=== PATIENT | female | born 1965 | race Caucasian/White ===

== ENCOUNTER 2017-03-21 18:07 | Observation (INO) | payer BC ==
[~2017-03-21] VITALS: Ht 165.1 cm; Wt 56.9 kg
[2017-03-21] VITALS (7 sets, daily range): BP systolic 141–167; BP diastolic 82–107; PULSE 83–106; RESP 18–20; TEMP 98.8; O2SAT 96–99
[~2017-03-21 18:07] MED LIST: ANAS1 PO; CLIN1CAP6 PO; LISI2.5T3 PO
[2017-03-21] MEDS ORDERED: PALB75CA PO (18:46)
[2017-03-21] MEDS ORDERED: LISI2.5T3 PO (18:46)
--- NOTE | 2017-03-21 18:50 | PD ---
HPI Chief Complaint: Dizziness Time Seen by Provider: 18:28 Travel History International Travel<30 days: No Contact w/Intl Traveler<30days: No Traveled to known affect area: No History of Present Illness HPI 51-year-old female complains of right ear ringing, headache, dizziness, slurring speech and walking leaning on to the left. Patient states that she started having right ear pain and ringing in right ear for the past 5 days. Patient states that she has headache 5 days ago but not since then. Patient states that she has persistent dizziness for the past 5 days. Patient states that she started having slurred speech since yesterday. Patient has history alcohol abuse and drinks alcohol daily. Patient states that her last drink was yesterday. Patient denies any history of DT in the past. Patient has history of breast cancer was on chemotherapy in the past. Recently patient was diagnosed with metastasis to the sternum and was put on chemotherapy. Patient denies any history of TIA or CVA. Patient has history of depression and hypertension. Patient states that she stopped taking medication for depression a month ago and stopped taking hypertension medication 3 days ago. Patient's sister states that patient started having slurred speech since yesterday. Patient's sister states that the slurred speech has not get any worse since yesterday. Patient's oncologist is Dr. Inman. [facility] Past Medical History Anxiety: Yes Cancer: Yes (BILATERAL BREAST METS TO SPINE AND CHEST WALL) Cardiovascular Problems: Yes (htn takes meds but states didnt take meds today) Chemotherapy: Yes Hypertension: Yes Radiation Therapy: Yes Menopausal: Yes Past Surgical History Mastectomy: Yes (BILATERAL FOR CA in 2003 , 2005 right breast tissue area) Other Surgery: Yes (BREAST AUMENTATION ) Social History Alcohol Use: Yes (SOCIAL- wine) Tobacco Use: No (quit years ago social smoker) Substance Use: No Allergies-Medications (Allergen,Severity, Reaction): Coded Allergies: Erythromycins (Verified Allergy, Severe, UNKNOWN, 03/21/17) Morphine (Verified Allergy, Severe, UNKNOWN, 03/21/17) Penicillin (Verified Allergy, Severe, UNKNOWN, 03/21/17) Uncoded Allergies: MRI CONTRAST (Allergy, Severe, Anaphylaxis, 06/17/16) . Reported Meds & Prescriptions Reported Meds & Active Scripts Active Reported Ibrance (Palbociclib) 75 Mg Capsule 1 Tab PO DAILY Lisinopril 2.5 Mg Tab 2.5 Mg PO DAILY Review of Systems General / Constitutional: No: Fever Eyes: No: Visual changes HENT: Positive: Headaches, Lightheadedness, Earache Cardiovascular: No: Chest Pain or Discomfort Respiratory: No: Shortness of Breath Gastrointestinal: No: Abdominal Pain Genitourinary: No: Dysuria Musculoskeletal: No: Pain Skin: No Rash Neurologic: Positive: Slurred Speech, No: Weakness Psychiatric: No: Depression Endocrine: No: Polydipsia Hematologic/Lymphatic: No: Easy Bruising Physical Exam Narrative GENERAL: Well-nourished, well-developed patient. SKIN: Focused skin assessment warm/dry. HEAD: Normocephalic. EYES: No scleral icterus. No injection or drainage. Pupils 2 mm equal reactive. NECK: Supple, trachea midline. No JVD or lymphadenopathy. CARDIOVASCULAR: Regular rate and rhythm without murmurs, gallops, or rubs. RESPIRATORY: Breath sounds equal bilaterally. No accessory muscle use. GASTROINTESTINAL: Abdomen soft, non-tender, nondistended. MUSCULOSKELETAL: No cyanosis, or edema. BACK: Nontender without obvious deformity. No CVA tenderness. Neurologic exam: Patient's awake and alert oriented 3. Extremity strength 5 / 5 bilaterally upper and lower extremity. Patient has trouble with finger-to- nose test. Data Data Last Documented VS Vital Signs Date Time Temp Pulse Resp B/P Pulse Ox O2 Delivery O2 Flow Rate FiO2 03/21/17 19:52 83 20 96 03/21/17 19:51 154/87 03/21/17 18:44 Room Air 03/21/17 18:18 98.8 Orders Electrocardiogram (03/21/17 18:40) Complete Blood Count With Diff (03/21/17 18:40) Comprehensive Metabolic Panel (03/21/17 18:40) Prothrombin Time / Inr (Pt) (03/21/17 18:40) Act Partial Throm Time (Ptt) (03/21/17 18:40) Urinalysis - C+S If Indicated (03/21/17 18:40) Chest, Single Ap (03/21/17 18:40) Ct Brain W/O Iv Contrast(Rout) (03/21/17 18:40) Iv Access Insert/Monitor (03/21/17 18:40) Ecg Monitoring (03/21/17 18:40) Oximetry (03/21/17 18:40) Alcohol (Ethanol) (03/21/17 18:40) Sodium Chlor 0.9% 1000 Ml Inj (Ns 1000 M (03/21/17 19:00) Urine Culture (03/21/17 18:50) Sodium Chlor 0.9% 1000 Ml Inj (Ns 1000 M (03/21/17 20:45) Thiamine Inj (Thiamine Inj) (03/21/17 20:45) Pantoprazole Inj (Protonix Inj) (03/21/17 20:45) Labs Laboratory Tests Test 03/21/17 03/21/17 18:50 19:30 Urine Color YELLOW Urine Turbidity HAZY Urine pH 5.5 Urine Specific [place] 1.010 Urine Protein NEG mg/dL Urine Glucose (UA) NEG mg/dL Urine Ketones NEG mg/dL Urine Occult Blood NEG Urine Nitrite NEG Urine Bilirubin NEG Urine Leukocyte Esterase MOD Urine WBC 15-19 /hpf Urine Squamous Epithelial 0-5 /hpf Cells Microscopic Urinalysis Comment CULTURE INDICATED White Blood Count 3.3 TH/MM3 Red Blood Count 3.66 MIL/MM3 Hemoglobin 12.7 GM/DL Hematocrit 38.0 % Mean Corpuscular Volume 103.6 FL Mean Corpuscular Hemoglobin 34.8 PG Mean Corpuscular Hemoglobin 33.5 % Concent Red Cell Distribution Width 13.6 % Platelet Count 133 TH/MM3 Mean Platelet Volume 7.1 FL Neutrophils (%) (Auto) 34.1 % Lymphocytes (%) (Auto) 50.2 % Monocytes (%) (Auto) 13.6 % Eosinophils (%) (Auto) 1.1 % Basophils (%) (Auto) 1.0 % Neutrophils # (Auto) 1.1 TH/MM3 Lymphocytes # (Auto) 1.8 TH/MM3 Monocytes # (Auto) 0.4 TH/MM3 Eosinophils # (Auto) 0.0 TH/MM3 Basophils # (Auto) 0.0 TH/MM3 CBC Comment DIFF FINAL Differential Comment Prothrombin Time 10.7 SEC Prothromb Time International 1.0 RATIO Ratio Activated Partial 25.4 SEC Thromboplast Time Sodium Level 143 MEQ/L Potassium Level 3.9 MEQ/L Chloride Level 108 MEQ/L Carbon Dioxide Level 24.6 MEQ/L Anion Gap 10 MEQ/L Blood Urea Nitrogen 12 MG/DL Creatinine 0.61 MG/DL Estimat Glomerular Filtration 103 ML/MIN Rate Random Glucose 94 MG/DL Calcium Level 8.6 MG/DL Total Bilirubin 0.2 MG/DL Aspartate Amino Transf 33 U/L (AST/SGOT) Alanine Aminotransferase 32 U/L (ALT/SGPT) Alkaline Phosphatase 58 U/L Total Protein 7.5 GM/DL Albumin 3.9 GM/DL Ethyl Alcohol Level 282 MG/DL MDM Medical Decision Making Medical Screen Exam Complete: Yes Emergency Medical Condition: Yes Interpretation(s) 1913 p.m. UA is negative. 2025 PM. Last Impressions Head CT 03/21/171839 Signed Impressions: Service Date/Time: February 19:02 - CONCLUSION: No acute abnormality. Omid Banks MD Chest X-Ray 03/21/171839 Signed Impressions: Service Date/Time: February 18:56 - CONCLUSION: No evidence of acute cardiopulmonary disease. Omid Banks MD 2025 PM. CBC WBC 3.3. Hemoglobin 12.7 hematocrit 30.0. MCV 103.6. 50 lymphocyte 13 mono. CMP within normal limit. Alcohol 282. UA is positive for WBC. Differential Diagnosis Differential diagnosis including TIA, CVA, alcohol intoxication, electrolyte imbalance, dehydration, metastatic disease. Narrative Course [id number] female with right ear pain, ringing in right ear, headache, dizziness, slurring speech and walking with limping to the left side. History of EtOH abuse. History of breast cancer with metastases to the sternum and on chemotherapy. Normal saline solution 100 cc an hour. Protonix 40 mg IV. Thiamine 100 mg IV. Aspirin 325 mg by mouth given. Diagnosis Primary Impression: Slurred speech Additional Impression: Alcohol intoxication Qualified Code: F10.920 - Alcohol intoxication, uncomplicated Admitting Information Admitting Physician Requests: Observation Loco Angeles MD March 21, 2017 18:49
[2017-03-21 19:05] LABS: BLOOD, URINE NEG (NEG); GLUCOSE,URINE NEG (NEG); KETONE, URINE NEG (NEG); NITRITE,URINE NEG (NEG); PH, URINE 5.5 (5.0-8.5)
[2017-03-21 19:09] LABS: URINE COLOR YELLOW (YELLW/STRAW)
[2017-03-21 19:10] LABS: COMMENT (UR) CULTURE INDICATED; CULTURE IF INDICATED CULTURE INDICATED; SQUAMOUS EPITHELIAL CELL URINE 0-5 /hpf (0-5); WBC, URINE 15-19 /hpf (0-5)
[2017-03-21] MEDS: SODIUM CHLOR 0.9% 1000 ML INJ 1,000 ML IV SCH ×2 (19:35→21:14)
[2017-03-21 19:38] LABS: AUTOMATED NEUTROPHIL # 1.1 TH/MM3 (1.8-7.7); EOSINOPHIL % 1.1 % (0.0-4.0); HEMO FLAGS DIFF FINAL; LYMPH % 50.2 % (9.0-44.0); LYMPHOCYTE # 1.8 TH/MM3 (1.0-4.8); MEAN CELL VOLUME 103.6 FL (80.0-100.0); MEAN CORPUSCULAR HEMOGLOBIN 34.8 PG (27.0-34.0); MEAN CORPUSCULAR HGB CONC 33.5 % (32.0-36.0); MONO % 13.6 % (0.0-8.0); NEUT % 34.1 % (16.0-70.0); PLATELET COUNT 133 TH/MM3 (150-450); RED BLOOD COUNT 3.66 MIL/MM3 (4.00-5.30); RED CELL DISTRIBUTION WIDTH 13.6 % (11.6-17.2); WHITE BLOOD COUNT 3.3 TH/MM3 (4.0-11.0)
--- NOTE | 2017-03-21 19:38 | RADHPO ---
EXAM DATE/TIME: 03/21/2017 19:02 [facility] COMPARISON: CT BRAIN W/O CONTRAST, July 14, 2014, 11:27. INDICATIONS : Right ear ringing. Dizziness. Cephalgia. Slurred speech. Abdnormal gait. Evaluate for cerebrovascular accident. RADIATION DOSE: 57.57 CTDIvol (mGy) MEDICAL HISTORY : Hypertension. Metastatic, breast. SURGICAL HISTORY : Mastectomy, bilateral. ENCOUNTER: Initial ACUITY: 3 days PAIN SCALE: 0/10 LOCATION: Bilateral cranial TECHNIQUE: Multiple contiguous axial images were obtained of the head. Using automated exposure control and adj ustment of the mA and/or kV according to patient size, radiation dose was kept as low as reasonably a chievable to obtain optimal diagnostic quality images. FINDINGS: CEREBRUM: The ventricles are normal for age. No evidence of midline shift, mass lesion, hemorrhage or acute in farction. No extra-axial fluid collections are seen. POSTERIOR FOSSA: The cerebellum and brainstem are intact. The 4th ventricle is midline. The cerebellopontine angle i s unremarkable. EXTRACRANIAL: The visualized portion of the orbits is intact. SKULL: The calvaria is intact. No evidence of skull fracture. CONCLUSION: No acute abnormality. Omid Banks MD on March 21, 2017 at 19:36 Board Certified Radiologist. This report was verified electronically.
[2017-03-21 19:46] LABS: CHLORIDE 108 MEQ/L (98-107); POTASSIUM 3.9 MEQ/L (3.5-5.1); SODIUM (NA) 143 MEQ/L (136-145)
[2017-03-21 19:50] LABS: ANION GAP 10 MEQ/L (5-15); BICARBONATE 24.6 MEQ/L (21.0-32.0); BLOOD UREA NITROGEN 12 MG/DL (7-18)
[2017-03-21 19:51] LABS: APTT (PATIENT) 25.4 SEC (24.3-30.1); PROTHROMBIN TIME - PATIENT 10.7 SEC (9.8-11.6)
[2017-03-21 19:53] LABS: ALT (GPT) 32 U/L (10-53); AST (GOT) 33 U/L (15-37); GLOMERULAR FILTRATION RATE 103 ML/MIN (>89)
[2017-03-21 19:54] LABS: TOTAL BILIRUBIN ADULT 0.2 MG/DL (0.2-1.0)
[2017-03-21 19:55] LABS: ALKALINE PHOSPHATASE 58 U/L (45-117)
--- NOTE | 2017-03-21 20:04 | RADHPO ---
EXAM DATE/TIME: 03/21/2017 18:56 [facility] COMPARISON: No previous studies available for comparison. INDICATIONS : Patient states she been confused and dizzy for one week. MEDICAL HISTORY : Hypertension. Metastatic, breast. SURGICAL HISTORY : Mastectomy, bilateral. ENCOUNTER: Initial ACUITY: 1 week PAIN SCORE: 0/10 LOCATION: Bilateral chest FINDINGS: A single view of the chest demonstrates the lungs to be symmetrically aerated without evidence of mas s, infiltrate or effusion. The cardiomediastinal contours are unremarkable. Osseous structures are intact. CONCLUSION: No evidence of acute cardiopulmonary disease. Omid Banks MD on March 21, 2017 at 20:02 Board Certified Radiologist. This report was verified electronically.
[2017-03-21] MEDS ORDERED: ASPIRIN 325 MG TAB PO ONE (20:45)
[2017-03-21] MEDS ORDERED: PANTOPRAZOLE SODIUM 40 MG VIAL IV PUSH ONE (20:45)
[2017-03-21] MEDS ORDERED: THIAMINE INJ 100 MG in SODIUM CHLORIDE 0.9% INJ 100 ML IV ONE (20:45)
[2017-03-21] MEDS ORDERED: SODIUM CHLORIDE 0.9% FLUSH 5 ML FLUSH IV FLUSH PRN (21:00)
[2017-03-21] MEDS: SODIUM CHLORIDE 0.9% FLUSH 5 ML FLUSH IV FLUSH SCH (21:00)
[2017-03-21] MEDS ORDERED: ACETAMINOPHEN 325 MG TAB PO ONE (22:30)
[2017-03-22] VITALS (7 sets, daily range): BP systolic 128–160; BP diastolic 79–96; PULSE 85–98; RESP 20; TEMP 96–98.8; O2SAT 97–99
[2017-03-22] MEDS: SODIUM CHLOR 0.9% 1000 ML INJ 1,000 ML IV SCH ×2 (05:00→06:03)
[2017-03-22] MEDS: SODIUM CHLORIDE 0.9% FLUSH 5 ML FLUSH IV FLUSH SCH (09:00)
[2017-03-22] MEDS ORDERED: LORazepam 1 MG TAB PO PRN ×2 (09:00→09:15)
[2017-03-22] MEDS ORDERED: FLUMAZENIL 0.5 MG/5 ML VIAL IV PUSH PRN (09:15)
[2017-03-22] MEDS ORDERED: LORazepam 2 MG/ML VIAL IV PUSH PRN ×2 (09:15)
[2017-03-22] MEDS ORDERED: LORazepam 2 MG TAB PO PRN (09:15)
[2017-03-22] MEDS ORDERED: MULTIVITAMINS/MINERALS THERAPEUTIC TAB PO SCH (09:15)
[2017-03-22] MEDS ORDERED: THIAMINE HCL 100 MG TAB PO SCH (09:15)
[2017-03-22] MEDS ORDERED: ENALAPRILAT 1.25 MG/ML VIAL IV PUSH PRN (09:15)
[2017-03-22] MEDS ORDERED: FOLIC ACID 1 MG TAB PO SCH (09:15)
[2017-03-22] MEDS ORDERED: LORazepam 1 MG TAB PO ONE (09:15)
--- NOTE | 2017-03-22 09:23 | HHI.HP ---
HPI Service [facility] Primary Care Physician Ting Logan MD Admission Diagnosis slurred speech. Alcohol intoxication. Diagnoses: Chief Complaint: Intoxication Travel History International Travel<30 Days: No Contact w/Intl Traveler <30 Da: No Traveled to Known Affected Are: No History of Present Illness The patient is a 51-year-old female with a past medical history of breast cancer and alcohol abuse who is presenting to the hospital with dizziness, slurred speech and headaches. The patient says that she has been drinking heavily over the past few days. She says she does have a history of alcohol abuse but has been able to stop drinking weeks at a time. She says that she has been taking chemotherapy meds for her breast cancer and has been told not to drink while on that medication. She has been trying hard to avoid it but every once in a while she slips up. She says she has a lot of anxiety in general. She says last fall she was diagnosed with metastasis to her sternum. She says that is the sixth time she has had problems secondary to her breast cancer. She says she has had a right ear infection a few months ago and since then she has always been having difficulty walking without leaning to one side or the other. She also endorses palpitations from time to time. Over the past few days she has had a headache. She said at work the other day she had a migraine which is only the second time she has experienced a migraine in her life. She says her headache has resolved at this time. She has experienced some nausea and vomiting from her chemotherapy medications, not recently. She denies any difficulties with urination or bowel movements. She shows great interest in wanting to quit alcohol. Review of Systems Except as stated in HPI: all other systems reviewed are Neg Past Family Social History Past Medical History Breast cancer bilaterally s/p chemoradiation with mets to the spine and sternum Infected breast implant TIA Panic attacks Anxiety/ Depression HTN Alcohol abuse Allergies: Coded Allergies: Erythromycins (Verified Allergy, Severe, UNKNOWN, 03/21/17) Morphine (Verified Allergy, Severe, UNKNOWN, 03/21/17) Penicillin (Verified Allergy, Severe, UNKNOWN, 03/21/17) Uncoded Allergies: MRI CONTRAST (Allergy, Severe, Anaphylaxis, 06/17/16) . Active Ordered Medications Current Medications Medications (Trade) Dose Ordered Sig/Velia Route Start Time Stop Time Status Last Admin Sodium Chloride 1,000 ml @ 100 mls/hr Q10H IV 03/21/17 19:00 03/21/17 19:35 (NS 1000 ml Inj) 1,000 ml @ 100 mls/hr Q10H IV 03/21/17 20:45 03/22/17 06:03 (NS Flush) 2 ml BID IV FLUSH 03/21/17 21:00 (NS Flush) 2 ml UNSCH PRN IV FLUSH 03/21/17 21:00 Non-Formulary Medication 2.5 mg DAILY PO 03/22/17 09:00 UNV Non-Formulary Medication 1 tab DAILY PO 03/22/17 09:00 UNV (Ativan) 1 mg Q8H PRN PO 03/22/17 09:00 UNV (Ativan) 1 mg ONCE ONCE PO 03/22/17 09:15 03/22/17 09:16 UNV (Vasotec Inj) 1.25 mg Q6H PRN IV PUSH 03/22/17 09:15 UNV Family History Breast cancer Thyroid cancer Social History The patient does not smoke or use illicit substances. She binges on wine every few weeks. Physical Exam Vital Signs Vital Signs Date Time Temp Pulse Resp B/P Pulse Ox O2 Delivery O2 Flow Rate FiO2 03/22/17 02:38 90 03/22/17 02:30 96.0 85 20 141/85 99 03/22/17 02:00 84 20 128/79 98 03/22/17 00:39 86 20 137/85 98 03/21/17 23:47 83 20 144/83 99 03/21/17 22:39 92 20 141/82 97 03/21/17 21:39 96 20 161/97 96 03/21/17 20:38 94 20 149/90 96 03/21/17 19:52 83 20 96 03/21/17 19:51 83 20 154/87 96 03/21/17 18:44 93 18 167/82 98 Room Air 03/21/17 18:41 93 99 Room Air 03/21/17 18:18 98.8 106 18 165/107 99 Physical Exam GENERAL: This is a well-nourished, well-developed patient, in no apparent distress. SKIN: No rashes, ecchymoses or lesions. Cool and dry. HEAD: Atraumatic. Normocephalic. No temporal or scalp tenderness. EYES: Pupils equal round and reactive. Extraocular motions intact. No scleral icterus. No injection or drainage. ENT: Nose without bleeding, purulent drainage or septal hematoma. Throat without erythema, tonsillar hypertrophy or exudate. Uvula midline. Airway patent. NECK: Trachea midline. No JVD or lymphadenopathy. Supple, nontender, no meningeal signs. CARDIOVASCULAR: Regular rate and rhythm without murmurs, gallops, or rubs. RESPIRATORY: Clear to auscultation. Breath sounds equal bilaterally. No wheezes , rales, or rhonchi. GASTROINTESTINAL: Abdomen soft, non-tender, nondistended. No hepato-splenomegaly , or palpable masses. No guarding. MUSCULOSKELETAL: Extremities without clubbing, cyanosis, or edema. No joint tenderness, effusion, or edema noted. NEUROLOGICAL: Awake and alert. Cranial nerves II through XII intact. Motor and sensory grossly within normal limits. Five out of 5 muscle strength in all muscle groups. Normal speech. PSYCH: Slightly anxious. Laboratory Laboratory Tests Test 03/21/17 03/21/17 18:50 19:30 Urine Color YELLOW Urine Turbidity HAZY Urine pH 5.5 Urine Specific [place] 1.010 Urine Protein NEG Urine Glucose (UA) NEG Urine Ketones NEG Urine Occult Blood NEG Urine Nitrite NEG Urine Bilirubin NEG Urine Leukocyte Esterase MOD Urine WBC 15-19 Urine Squamous Epithelial 0-5 Cells Microscopic Urinalysis Comment CULTURE INDICATED White Blood Count 3.3 Red Blood Count 3.66 Hemoglobin 12.7 Hematocrit 38.0 Mean Corpuscular Volume 103.6 Mean Corpuscular Hemoglobin 34.8 Mean Corpuscular Hemoglobin 33.5 Concent Red Cell Distribution Width 13.6 Platelet Count 133 Mean Platelet Volume 7.1 Neutrophils (%) (Auto) 34.1 Lymphocytes (%) (Auto) 50.2 Monocytes (%) (Auto) 13.6 Eosinophils (%) (Auto) 1.1 Basophils (%) (Auto) 1.0 Neutrophils # (Auto) 1.1 Lymphocytes # (Auto) 1.8 Monocytes # (Auto) 0.4 Eosinophils # (Auto) 0.0 Basophils # (Auto) 0.0 CBC Comment DIFF FINAL Differential Comment Prothrombin Time 10.7 Prothromb Time International 1.0 Ratio Activated Partial 25.4 Thromboplast Time Sodium Level 143 Potassium Level 3.9 Chloride Level 108 Carbon Dioxide Level 24.6 Anion Gap 10 Blood Urea Nitrogen 12 Creatinine 0.61 Estimat Glomerular Filtration 103 Rate Random Glucose 94 Calcium Level 8.6 Total Bilirubin 0.2 Aspartate Amino Transf 33 (AST/SGOT) Alanine Aminotransferase 32 (ALT/SGPT) Alkaline Phosphatase 58 Total Protein 7.5 Albumin 3.9 Ethyl Alcohol Level 282 Date/Time Procedure Status Source Growth 03/21/17 18:50 Urine Culture Received Urine Clean Catch Pending Result Diagram: 03/21/17192903/21/171929 Imaging Last Impressions Head CT 03/21/171839 Signed Impressions: Service Date/Time: February 19:02 - CONCLUSION: No acute abnormality. Omid Banks MD Chest X-Ray 03/21/171839 Signed Impressions: Service Date/Time: February 18:56 - CONCLUSION: No evidence of acute cardiopulmonary disease. Omid Banks MD Assessment and Plan Assessment and Plan Alcohol intoxication The patient presents to the hospital with dizziness, slurred speech and difficulties with ambulation. She was found to be intoxicated with a blood alcohol level of 282. She denies any history of withdrawal seizures. She says she tends to binge on wine every few weeks. She endorses a number of stressors. She does show interest in wanting to quit. - Neuro checks, seizure precautions. - [facility] protocol. - Multivitamin, folate and thiamine. - Case management consult for alcohol cessation resources. - Appreciate physical therapy evaluation. Headache/ Ear ringing/ Ataxia The pt says she has had a headache over the past few days, including a migraine which is only the second time in her life experiencing one. She also endorses ringing in her right ear and listing to the side, which started after having a right ear infection a few months ago. CT head unremarkable. - MRI of the brain, echo and carotid US pending. Neutropenia/ Thrombocytopenia Likely s/t chemo meds. - continue chemo meds. - outpt follow-up. Anxiety/ Depression The pt recently discontinued her depression med cold turkey. She struggles with anxiety. - Ativan as needed. - outpt follow-up. HTN The pt takes lisinopril 2.5 mg daily. - increase lisinopril as needed. - Vasotec as needed. PPx: SCDs Code Status Full. Discussed Condition With Pt, physical therapist, nurse. Migue Rhodes DO March 22, 2017 09:23
[2017-03-22] MEDS ORDERED: LISINOPRIL 5 MG TAB PO SCH (09:30)
[2017-03-22] MEDS ORDERED: PILL SPLITTER OTHER PRN (09:30)
[2017-03-22] MEDS ORDERED: PALBOCICLIB PO SCH (09:45)
[2017-03-22 10:05] LABS: HDL CHOLESTEROL 63.6 MG/DL (40.0-60.0)
--- NOTE | 2017-03-22 10:41 | RADHPO ---
EXAM DATE/TIME: 03/22/2017 13:19 [facility] COMPARISON: No previous studies available for comparison. INDICATIONS : Transischemic attack. MEDICAL HISTORY : Carcinoma, breast. Hypertension. SURGICAL HISTORY : Breast augmentation. Breast surgery for cancer. ENCOUNTER: Initial ACUITY: 4-6 days PAIN SCORE: 0/10 LOCATION: Bilateral neck PEAK SYSTOLIC VELOCITIES (cm/sec): ICA/CCA RATIO: Right: 0.8 Left: 1.3 ICA: Right: 84 Left: 103 CCA: Right: 101 Left: 78 ECA: Right: 104 Left: 101 VERTEBRAL: Right: 38 antegrade Left: 70 antegrade Elevated flow velocities and ICA/CCA ratios have been found to correlate with increased degrees of vessel stenosis, calculated as percentage of diameter relative to a normal segment of distal ICA/CCA FINDINGS: RIGHT CAROTID: No significant stenosis is visualized. The waveforms are within normal limits. LEFT CAROTID: No significant stenosis is visualized. The waveforms are within normal limits. VERTEBRAL ARTERIES: Antegrade flow is seen in both vertebral arteries. MISCELLANEOUS: None. CONCLUSION: 1. Mild visible plaque formation without hemodynamically significant stenosis in the carotid arteries . Vertebral artery flow antegrade. Manny Faust MD on March 22, 2017 at 10:33 Board Certified Radiologist. This report was verified electronically.
--- NOTE | 2017-03-22 11:19 | EC ---
Study Study Date:03/22/2017 STUDY CONCLUSIONS SUMMARY - Procedure narrative: Transthoracic echocardiography. Image quality was fair. Scanning was performed from the parasternal, apical, and subcostal acoustic windows. - Left ventricle: The cavity size was normal. Wall thickness was normal. Systolic function was normal. The estimated ejection fraction was in the range of 55% to 60%. Although no diagnostic regional wall motion abnormality was identified, this possibility cannot be completely excluded on the basis of this study. - Mitral valve: Possible minimal prolapse and leaflet redundancy. Trace regurgitation. - Tricuspid valve: Trace regurgitation. If LV function is below 40, please consider prescribing an ACEI or ARB or document rationale for non-use. PROCEDURE DATA STUDY STATUS: Elective. Procedure: Transthoracic echocardiography. Image quality was fair. Scanning was performed from the parasternal, apical, and subcostal acoustic windows. Study completion: The patient tolerated the procedure well. Transthoracic echocardiography. M-mode, complete 2D, complete spectral Doppler, and color Doppler. Patient status: Inpatient. CARDIAC ANATOMY LEFT VENTRICLE: The cavity size was normal. Wall thickness was normal. Systolic function was normal. The estimated ejection fraction was in the range of 55% to 60%. Although no diagnostic regional wall motion abnormality was identified, this possibility cannot be completely excluded on the basis of this study. AORTIC VALVE: Trileaflet; normal thickness leaflets. Doppler: Transvalvular velocity was within the normal range. There was no stenosis. No regurgitation. Peak gradient: 17mm Hg (S). AORTA: Aortic root: The aortic root was normal in size. MITRAL VALVE: Possible minimal prolapse and leaflet redundancy. Doppler: Transvalvular velocity was within the normal range. There was no evidence for stenosis. Trace regurgitation. Peak gradient: 4mm Hg (D). LEFT ATRIUM: The atrium was normal in size. RIGHT VENTRICLE: The cavity size was normal. Wall thickness was normal. PULMONIC VALVE: Doppler: Transvalvular velocity was within the normal range. There was no evidence for stenosis. No regurgitation. TRICUSPID VALVE: Structurally normal valve. Doppler: Transvalvular velocity was within the normal range. Trace regurgitation. PULMONARY ARTERY: The main pulmonary artery was normal-sized. Systolic pressure was within the normal range. RIGHT ATRIUM: The atrium was normal in size. PERICARDIUM: There was no pericardial effusion. SYSTEMIC VEINS: Inferior vena cava: The vessel was normal in size. BASIC MEASUREMENTS ADULT Normal Left ventricle LV internal dimension, ED, chordal level, *38.9 mm 43-52 PLAX LV internal dimension, ES, chordal level, 29.8 mm 23-38 PLAX Fractional shortening, chordal level, PLAX *23 % >29 LV posterior wall thickness, ED 5.92 mm IVS/LVPW ratio, ED *1.55 <1.3 Ventricular septum Septal thickness, ED 9.18 mm Aortic valve Leaflet separation 20 mm 15-26 Left atrium Anterior-posterior dimension 30 mm Right ventricle RV internal dimension, ED, PLAX 20.3 mm 19-38 BASIC MEASUREMENTS ADULT Normal Aortic valve Leaflet separation 20 mm 15-26 Aorta Root diameter, ED 30 mm 20-37 DOPPLER MEASUREMENTS ADULT Normal Aortic valve Peak velocity, S 204 cm/s Peak gradient, S 17 mm Hg Mitral valve Peak E-wave velocity 95.8 cm/s Peak A-wave velocity 67.6 cm/s Peak gradient, D 4 mm Hg Peak E/A ratio 1.4 Tricuspid valve Regurgitant peak velocity 206 cm/s Peak RV-RA gradient, S 17 mm Hg Maximal regurgitant velocity 206 cm/s LEGEND: Mean values are shown as u=mean value. Asterisk (*) love values outside specified normal range. Prepared and signed by Chucky Allison [id number]
[2017-03-22 11:26] LABS: HEMOGLOBIN A1a 1.6 %; HEMOGLOBIN A1b 0.7 %; HEMOGLOBIN Ao 83.4 %; HEMOGLOBIN F 2.8 %; HEMOGLOBIN LA1C 1.8 %; HEMOGLOBIN P3 3.3 %
--- NOTE | 2017-03-22 14:23 | EKG ---
Date Performed: 03/21/2017 Time Performed: 18:53:52 PTAGE: 51 years EKG: Sinus rhythm Compared to prior tracing no significant change Normal ECG PREVIOUS TRACING : 05/13/2014 16.49 DOCTOR: Vladimir Lyons Interpretating Date/Time 03/22/2017 14:20:51
--- NOTE | 2017-03-22 14:45 | RADHPO ---
EXAM DATE/TIME: 03/22/2017 14:05 [facility] COMPARISON: No previous studies available for comparison. INDICATIONS : CVA. MEDICAL HISTORY : Carcinoma, breast. Metastatic disease. SURGICAL HISTORY : Mastectomy, bilateral. ENCOUNTER: Subsequent ACUITY: 2 day PAIN SCORE: 3/10 LOCATION: cranial TECHNIQUE: Multiplanar, multisequence MRI of the brain was performed without contrast. FINDINGS: MRI of the brain is performed in sagittal, axial and coronal planes. The craniocervical junction and midline structures are unremarkable. Diffusion weighted images demonstrate no abnormality. There is n o evidence of acute cortical infarction, acute hemorrhage, mass effect or midline shift is seen. Ther e is periventricular hyperintensity on the T2 weighted images consistent with small vessel vascular d isease slightly more than expected in a patient of this age. Contrast was not administered and the pr esence or absence of metastatic disease cannot be determined Posterior fossa structures are unremarka ble. CONCLUSION: 1. No evidence of acute intracranial pathology. Chronic ischemic changes as above. Vladimir Fernández MD on March 22, 2017 at 14:40 Board Certified Radiologist. This report was verified electronically.
[2017-03-22] MEDS ORDERED: LISI-519 PO (17:13)
[2017-03-22] MEDS ORDERED: LORA-373 PO (17:13)
--- NOTE | 2017-03-22 17:14 | HHI.DCPOC ---
Discharge Care Plan Diagnosis: (1) Alcohol intoxication (2) Tachycardia Your Health Problems Are: Anxiety Goals to Promote Your Health * To prevent worsening of your condition and complications * To maintain your health at the optimal level Directions to Meet Your Goals Take your medications as prescribed Follow your dietary instruction Follow activity as directed Keep your appointments as scheduled Take your immunizations and boosters as scheduled If your symptoms worsen call your PCP, if no PCP go to Urgent Care Center or Emergency Room Smoking is Dangerous to Your Health. Avoid second hand smoke Call the 24-hour hour crisis hotline for domestic abuse at Migue Rhodes DO March 22, 2017 17:13
--- NOTE | 2017-03-23 16:01 | EKG ---
Date Performed: 03/22/2017 Time Performed: 16:54:06 PTAGE: 51 years EKG: Within normal limits Since PREVIOUS TRACING 03/21/2017, no significant change. PREVIOUS TRACIN03/21/2017 18.53 DOCTOR: Tunde Salgado Interpretating Date/Time 03/23/2017 16:00:18
--- NOTE | 2017-03-27 12:36 | HM ---
Date Performed: 03/22/2017 Time Performed: 17:17:00 HOOKUP DATE: 03/22/17 05:17:00 PM Fri ANALYSIS START TIME: 03/22/2017 5:22:00 PM ANALYSIS END TIME: 03/23/2017 5:26:00 PM PATIENT AGE: 51 PATIENT HEIGHT: 65 PATIENT WEIGHT: 125 DRUG LIST: room# [id number] / d/c home PATIENT DIAGNOSIS: slurred speech alcohol intoxication TEST NARRATIVE: The patient's average heart rate was 99 BPM. Heart rates greater than 120 B PM were noted 27% of the time. No episodes of bradycardia were noted. No pauses exceeding 2.0 se conds were noted. 12 ventricular ectopics, which represented < 1% of the total beat count, were n oted. The highest ventricular ectopic frequency occurred from 08:00 PM to 09:00 PM Fri. During this time 4 VE(s) occurred. Ventricular ectopics were observed as 12 isolated beat(s) only. No couplets or runs were noted. 13 supraventricular ectopics, which represented < 1% of the total beat count , were noted. The highest supraventricular ectopic frequency occurred from 11:00 PM to 12:00 AM Sat. During this time 4 SVE(s) occurred. No episodes of ST depression (defined as -1.0 mm or more) w ere noted in channel 1. No episodes of ST depression (defined as -1.0 mm or more) were noted in [place] [facility]. No episodes of ST depression (defined as -1.0 mm or more) were noted in channel 3. NO DIARY R ETURNED TEST INTERPRETATION: Sinus rhythm PROBABLE SVT AT 150 BPM (SAT 2:30PM); CLINICAL CORRELATION RECOMMENDED Signed by : Francisco Hall
== END 2017-03-22 18:22 | disposition home or self-care (01) ==
LOC: PHED 18:07 → PHEDA 20:57 → PH3A 03-22 01:59
PROVIDERS: ADMIT Hospitalist; ATTEND Hospitalist
DX: F10.120 Alcohol abuse with intoxication, uncomplicated (principal); Y90.8 Blood alcohol level of 240 mg/100 ml or more; D69.6 Thrombocytopenia, unspecified; D70.9 Neutropenia, unspecified; T45.1X5A Adverse effect of antineoplastic and immunosuppressive drugs, initial encounter; I10 Essential (primary) hypertension; R47.81 Slurred speech; R00.2 Palpitations; R27.0 Ataxia, unspecified; H93.11 Tinnitus, right ear; R11.2 Nausea with vomiting, unspecified; R82.99 Other abnormal findings in urine; F41.9 Anxiety disorder, unspecified; F32.9 Major depressive disorder, single episode, unspecified; C79.51 Secondary malignant neoplasm of bone; Z85.3 Personal history of malignant neoplasm of breast; Z92.21 Personal history of antineoplastic chemotherapy; Z86.73 Personal history of transient ischemic attack (TIA), and cerebral infarction without residual deficits
CPT/HCPCS: 70450; 70551; 71010; 80053; 80061; 80307; 81001; 82948; 83036; 85025; 85610; 85730; 87086; 93005; 93225; 93226; 93306; 93880; 96361; 96374; 96375; 97162; 99285; C9113; G0378; G8987; G8988; J3411; J7030

== ENCOUNTER 2017-04-25 16:35 | Emergency (ER) | payer BC ==
[~2017-04-25] VITALS: Ht 165.1 cm; Wt 54.0 kg
[~2017-04-25 16:35] MED LIST changes: -ANAS1 PO; -CLIN1CAP6 PO; +LISI-519 PO; -LISI2.5T3 PO; +LORA-373 PO; +PALB75CA PO
[2017-04-25 16:40] VITALS: BP 161/119; PULSE 115; RESP 22; TEMP 97.7; O2SAT 98
[2017-04-25] MEDS ORDERED: MAGN400T24 PO (16:57)
[2017-04-25] MEDS ORDERED: VENL75CA44 PO (16:57)
[2017-04-25] MEDS ORDERED: CALC1TAB12 PO (16:57)
[2017-04-25] MEDS ORDERED: VITA100T67 PO (16:57)
[2017-04-25] MEDS ORDERED: SODIUM CHLOR 0.9% 1000 ML INJ 1,000 ML IV SCH (16:59)
[2017-04-25] MEDS ORDERED: SODIUM CHLORIDE 0.9% FLUSH 10 ML FLUSH IV FLUSH PRN (17:00)
[2017-04-25] MEDS ORDERED: ONDANSETRON HCL 4 MG/2 ML VIAL IVP ONE (17:00)
[2017-04-25] MEDS ORDERED: LORazepam 2 MG/ML VIAL IV PUSH ONE (17:00)
--- NOTE | 2017-04-25 17:03 | PD ---
HPI Chief Complaint: GI Complaint Time Seen by Provider: 16:49 Travel History International Travel<30 days: No Contact w/Intl Traveler<30days: No Traveled to known affect area: No History of Present Illness HPI 51-year-old female with history of breast cancer status post bilateral mastectomy with recurrence on her spine that was treated with radiation therapy with recent recurrence to her sternum currently treated by daily oral chemotherapy by oncologist Dr. Inman, here for evaluation of nausea, vomiting, bilateral hand and leg cramps. Patient reports that her mother had nausea and vomiting yesterday. Patient is had several episodes of emesis throughout the day today which she states is bilious. She is having some mild abdominal cramping. No history of abdominal surgeries. No diarrhea. No fevers. She was recently seen here for alcohol intoxication and admits to drinking alcohol because she feels depressed, however she has not drank alcohol in several days. She denies suicidal ideation. PFSH Past Medical History Blood Disorders: No Anxiety: Yes Depression: Yes Heart Rhythm Problems: No Cancer: Yes (BILATERAL BREAST METS TO SPINE AND CHEST WALL) Cardiovascular Problems: Yes High Cholesterol: No Chemotherapy: Yes Chest Pain: No Congestive Heart Failure: No Diminished Hearing: No Endocrine: No Gastrointestinal Disorders: No Genitourinary: No Hypertension: Yes Immune Disorder: No Implanted Vascular Access Dvce: No Musculoskeletal: No Neurologic: Yes (NEURO SYMPTOMS WITH THIS ADMISSION) Psychiatric: Yes Reproductive: No Respiratory: No Radiation Therapy: Yes Tetanus Vaccination: Unknown ?: Not Menopausal: Yes Past Surgical History Mastectomy: Yes (BILATERAL FOR CA in 2003 , 2005 right breast tissue area) Other Surgery: Yes (BREAST AUMENTATION/MASTECTOMIES ) Social History Alcohol Use: Yes (SOCIAL- wine) Tobacco Use: No (quit years ago social smoker) Substance Use: No Allergies-Medications (Allergen,Severity, Reaction): Coded Allergies: Erythromycins (Verified Allergy, Severe, UNKNOWN, 04/25/17) Morphine (Verified Allergy, Severe, UNKNOWN, 04/25/17) Penicillin (Verified Allergy, Severe, UNKNOWN, 04/25/17) Uncoded Allergies: MRI CONTRAST (Allergy, Severe, Anaphylaxis, 06/17/16) . Reported Meds & Prescriptions Reported Meds & Active Scripts Active Lisinopril 5 Mg Tab 5 Mg PO DAILY Reported Vitamin E (Vitamin E Mixed) 100 Unit Tablet 1 Tab PO DAILY Magnesium (Magnesium Oxide) 400 Mg Tablet 1 Tab PO DAILY Calcium 500 +D (Calcium Carbonate-Cholecalciferol) 500-400 Mg-Unit Tab 1 Tab PO BID Venlafaxine ER 24 HR (Venlafaxine HCl) 75 Mg Cap 75 Mg PO DAILY Ibrance (Palbociclib) 75 Mg Capsule 1 Tab PO DAILY Review of Systems Except as stated in HPI: all other systems reviewed are Neg Physical Exam Narrative GENERAL: Well-developed, well-nourished, comfortable, no apparent distress. Positive Trousseau sign 1 blood pressure cuff inflated on left upper extremity. SKIN: Focused skin assessment warm/dry. HEAD: Atraumatic. Normocephalic. EYES: Pupils equal and round. No scleral icterus. No injection or drainage. ENT: Mucous membranes pink and dry. NECK: Trachea midline. No JVD. CARDIOVASCULAR: Regular rate and rhythm. RESPIRATORY: No accessory muscle use. Clear to auscultation. Breath sounds equal bilaterally. GASTROINTESTINAL: Abdomen soft, non-tender, nondistended. Normal bowel sounds. MUSCULOSKELETAL: No obvious deformities. No clubbing. No cyanosis. No edema. NEUROLOGICAL: Awake and alert. No obvious cranial nerve deficits. Motor grossly within normal limits. Normal speech. PSYCHIATRIC: Appropriate mood and affect; insight and judgment normal. Data Data Last Documented VS Vital Signs Date Time Temp Pulse Resp B/P Pulse Ox O2 Delivery O2 Flow Rate FiO2 04/25/17 17:25 97.3 82 18 140/108 98 Orders Complete Blood Count With Diff (04/25/17 16:59) Comprehensive Metabolic Panel (04/25/17 16:59) Lipase (04/25/17 16:59) Prothrombin Time / Inr (Pt) (04/25/17 16:59) Act Partial Throm Time (Ptt) (04/25/17 16:59) Iv Access Insert/Monitor (04/25/17 16:59) Ecg Monitoring (04/25/17 16:59) Oximetry (04/25/17 16:59) Ondansetron Inj (Zofran Inj) (04/25/17 17:00) Sodium Chlor 0.9% 1000 Ml Inj (Ns 1000 M (04/25/17 16:59) Sodium Chloride 0.9% Flush (Ns Flush) (04/25/17 17:00) Electrocardiogram (6/29/17 16:59) Lorazepam Inj (Ativan Inj) (04/25/17 17:00) Labs Laboratory Tests Test 04/25/17 17:07 White Blood Count 2.8 TH/MM3 Red Blood Count 4.03 MIL/MM3 Hemoglobin 14.1 GM/DL Hematocrit 42.6 % Mean Corpuscular Volume 105.6 FL Mean Corpuscular Hemoglobin 35.0 PG Mean Corpuscular Hemoglobin 33.2 % Concent Red Cell Distribution Width 16.0 % Platelet Count 143 TH/MM3 Mean Platelet Volume 7.1 FL Neutrophils (%) (Auto) 74.0 % Lymphocytes (%) (Auto) 15.8 % Monocytes (%) (Auto) 8.2 % Eosinophils (%) (Auto) 0.1 % Basophils (%) (Auto) 1.9 % Neutrophils # (Auto) 2.1 TH/MM3 Lymphocytes # (Auto) 0.4 TH/MM3 Monocytes # (Auto) 0.2 TH/MM3 Eosinophils # (Auto) 0.0 TH/MM3 Basophils # (Auto) 0.1 TH/MM3 CBC Comment DIFF FINAL Differential Comment Sodium Level 139 MEQ/L Potassium Level 3.4 MEQ/L Chloride Level 101 MEQ/L Carbon Dioxide Level 19.1 MEQ/L Anion Gap 19 MEQ/L Blood Urea Nitrogen 7 MG/DL Creatinine 0.84 MG/DL Estimat Glomerular Filtration 71 ML/MIN Rate Random Glucose 153 MG/DL Calcium Level 9.0 MG/DL Total Bilirubin 1.1 MG/DL Aspartate Amino Transf 70 U/L (AST/SGOT) Alanine Aminotransferase 35 U/L (ALT/SGPT) Alkaline Phosphatase 84 U/L Total Protein 8.3 GM/DL Albumin 4.3 GM/DL Lipase 133 U/L MDM Medical Decision Making Medical Screen Exam Complete: Yes Emergency Medical Condition: Yes Medical Record Reviewed: Yes Interpretation(s) EKG: Sinus, rate 80, normal axis, normal intervals, occasional ectopic premature complexes, no acute ischemic abnormality. Differential Diagnosis Dehydration, hypocalcemia, metabolic abnormality, anxiety, bowel obstruction unlikely Narrative Course Vital signs reviewed. Heart rate improved from 1:15 to 82 after the patient received Ativan and a liter of normal saline IV. CBC shows WBC 2.8, hemoglobin 14.1, hematocrit 42.6, platelets 105.6, neutrophils 74%. CMP is remarkable for potassium 3.4, bicarbonate 19.1 which is likely secondary to hyperventilating, otherwise essentially unremarkable. Lipase is 133. Patient was given a liter of normal saline IV, 1 milligram of IV Ativan, IV Zofran, and on reassessment is feeling improved. She is tolerating Gatorade here in the emergency department. She was made aware of all findings. She is stable for discharge home with outpatient follow-up with her primary care physician this week. Her abdominal exam is benign. She was informed on when to return to the emergency department. She verbalizes understanding and agreement with plan. Diagnosis Primary Impression: Nausea and vomiting Qualified Code: R11.2 - Non-intractable vomiting with nausea, unspecified vomiting type Referrals: Primary Care Physician 3 days Additional Instructions: Follow-up with your primary care physician this week. Stay hydrated with plenty of fluids. Return to the emergency department for worsening symptoms or any other concerns. Scripts Ondansetron Odt (Zofran Odt)4 Mg Tab4 Mg SL Q8HR PRN (Nausea/Vomiting) #20 TAB Ref 0 Prov:Brigido Wiely MD 04/25/17 Disposition: 01 DISCHARGE HOME Condition: Stable Brigido Wiley MD Apr 25, 2017 17:03
[2017-04-25 17:18] LABS: AUTOMATED NEUTROPHIL # 2.1 TH/MM3 (1.8-7.7); BASOPHIL # 0.1 TH/MM3 (0-0.2); BASOPHIL % 1.9 % (0.0-2.0); EOSINOPHIL % 0.1 % (0.0-4.0); HEMATOCRIT 42.6 % (35.0-46.0); HEMO FLAGS DIFF FINAL; LYMPH % 15.8 % (9.0-44.0); LYMPHOCYTE # 0.4 TH/MM3 (1.0-4.8); MEAN CELL VOLUME 105.6 FL (80.0-100.0); MEAN CORPUSCULAR HGB CONC 33.2 % (32.0-36.0); MONO % 8.2 % (0.0-8.0); PLATELET COUNT 143 TH/MM3 (150-450); RED BLOOD COUNT 4.03 MIL/MM3 (4.00-5.30); WHITE BLOOD COUNT 2.8 TH/MM3 (4.0-11.0)
[2017-04-25 17:24] VITALS: O2SAT 99
[2017-04-25 17:25] VITALS: BP 140/108; PULSE 82; RESP 18; TEMP 97.3; O2SAT 98
[2017-04-25 17:30] LABS: CHLORIDE 101 MEQ/L (98-107); POTASSIUM 3.4 MEQ/L (3.5-5.1); SODIUM (NA) 139 MEQ/L (136-145)
[2017-04-25 17:34] LABS: ANION GAP 19 MEQ/L (5-15); BICARBONATE 19.1 MEQ/L (21.0-32.0); BLOOD UREA NITROGEN 7 MG/DL (7-18)
[2017-04-25 17:37] LABS: ALT (GPT) 35 U/L (10-53); AST (GOT) 70 U/L (15-37); GLOMERULAR FILTRATION RATE 71 ML/MIN (>89)
[2017-04-25 17:38] LABS: TOTAL BILIRUBIN ADULT 1.1 MG/DL (0.2-1.0)
[2017-04-25 17:40] LABS: ALKALINE PHOSPHATASE 84 U/L (45-117)
[2017-04-25] MEDS ORDERED: ZOFR4TAB3 SL (17:56)
[2017-04-25 17:58] LABS: APTT (PATIENT) 22.8 SEC (24.3-30.1); PROTHROMBIN TIME - PATIENT 11.3 SEC (9.8-11.6)
--- NOTE | 2017-04-26 05:06 | EKG ---
Date Performed: 04/25/2017 Time Performed: 18:14:34 PTAGE: 51 years EKG: SINUS TACHYCARDIA WITH FREQUENT SUPRAVENTRICULAR PREMATURE COMPLEXES ABNORMAL RHYTHM ECG NO SIGNIFICANT CHANGE FROM PRIOR ELECTROCARDIOGRAM. PREVIOUS TRACING : 04/25/2017 17.27 DOCTOR: Radames Monet Interpretating Date/Time 04/26/2017 05:04:30
--- NOTE | 2017-04-26 05:07 | EKG ---
Date Performed: 04/25/2017 Time Performed: 17:27:06 PTAGE: 51 years EKG: Sinus rhythm WITH OCCASIONAL ECTOPIC PREMATURE COMPLEXES BORDERLINE ECG NO SIGNIFICANT CHANGE FROM PRIOR ELECTROC ARDIOGRAM. PREVIOUS TRACING : 03/22/2017 16.54 DOCTOR: Radames Monet Interpretating Date/Time 05/01/2017 06:48:21
== END 2017-04-25 18:38 | disposition home or self-care (01) ==
LOC: PHED 16:35
DX: R11.2 Nausea with vomiting, unspecified (principal); Z85.3 Personal history of malignant neoplasm of breast; Z90.13 Acquired absence of bilateral breasts and nipples; I10 Essential (primary) hypertension; Z88.0 Allergy status to penicillin
CPT/HCPCS: 80053; 83690; 85025; 85610; 85730; 93005; 96361; 96374; 96375; 99284; J2060; J2405; J7030

== ENCOUNTER 2017-06-01 09:17 | Emergency (ER) | payer BC ==
[~2017-06-01] VITALS: Ht 165.1 cm; Wt 53.0 kg
[~2017-06-01 09:17] MED LIST changes: +CALC1TAB12 PO; -LORA-373 PO; +MAGN400T24 PO; +VENL75CA44 PO; +VITA100T67 PO; +ZOFR4TAB3 SL
[2017-06-01 09:19] VITALS: BP 138/78; PULSE 85; RESP 16; TEMP 98.5; O2SAT 97
--- NOTE | 2017-06-01 09:47 | PD ---
HPI Chief Complaint: Injury Time Seen by Provider: 09:39 Travel History International Travel<30 days: No Contact w/Intl Traveler<30days: No Traveled to known affect area: No History of Present Illness HPI 51-year-old female complains of left fourth finger pain and right fifth toe pain. Patient injured the right fifth toe about month ago. Patient states that the right fifth toe probably was dislocated and she reduced it herself. Patient jammed the left fourth finger yesterday. Patient states that she had persistent sharp pain of left fourth finger. Patient denies any other injury. Patient states that the pain localized around the PIP joint of the left fourth finger. Patient denies any pain radiation. Patient states the pain is worse with movement. PFSH Past Medical History Blood Disorders: No Anxiety: Yes Depression: Yes Heart Rhythm Problems: No Cancer: Yes (BILATERAL BREAST METS TO SPINE AND CHEST WALL) Cardiovascular Problems: Yes High Cholesterol: No Chemotherapy: Yes Chest Pain: No Congestive Heart Failure: No Diminished Hearing: No Endocrine: No Gastrointestinal Disorders: No Genitourinary: No Hypertension: Yes Immune Disorder: No Implanted Vascular Access Dvce: No Musculoskeletal: No Neurologic: Yes (NEURO SYMPTOMS WITH THIS ADMISSION) Psychiatric: Yes Reproductive: No Respiratory: No Radiation Therapy: Yes Menopausal: Yes Past Surgical History Mastectomy: Yes (BILATERAL FOR CA in 2003 , 2005 right breast tissue area) Other Surgery: Yes (BREAST AUMENTATION/MASTECTOMIES ) Social History Alcohol Use: Yes (SOCIAL- wine) Tobacco Use: No (quit years ago social smoker) Substance Use: No Allergies-Medications (Allergen,Severity, Reaction): Coded Allergies: Erythromycins (Verified Allergy, Severe, UNKNOWN, 06/01/17) Morphine (Verified Allergy, Severe, UNKNOWN, 06/01/17) Penicillin (Verified Allergy, Severe, UNKNOWN, 06/01/17) Uncoded Allergies: MRI CONTRAST (Allergy, Severe, Anaphylaxis, 06/17/16) . Reported Meds & Prescriptions Reported Meds & Active Scripts Active Zofran Odt (Ondansetron Odt) 4 Mg Tab 4 Mg SL Q8HR PRN Lisinopril 5 Mg Tab 5 Mg PO DAILY Reported Vitamin E (Vitamin E Mixed) 100 Unit Tablet 1 Tab PO DAILY Magnesium (Magnesium Oxide) 400 Mg Tablet 1 Tab PO DAILY Calcium 500 +D (Calcium Carbonate-Cholecalciferol) 500-400 Mg-Unit Tab 1 Tab PO BID Venlafaxine ER 24 HR (Venlafaxine HCl) 75 Mg Cap 75 Mg PO DAILY Ibrance (Palbociclib) 75 Mg Capsule 1 Tab PO DAILY Review of Systems General / Constitutional: No: Fever Eyes: No: Visual changes HENT: No: Headaches Cardiovascular: No: Chest Pain or Discomfort Respiratory: No: Shortness of Breath Gastrointestinal: No: Abdominal Pain Genitourinary: No: Dysuria Musculoskeletal: Positive: Pain Skin: No Rash Neurologic: No: Weakness Psychiatric: No: Depression Endocrine: No: Polydipsia Hematologic/Lymphatic: No: Easy Bruising Physical Exam Narrative GENERAL: Well-nourished, well-developed patient. SKIN: Focused skin assessment warm/dry. HEAD: Normocephalic. EYES: No scleral icterus. No injection or drainage. NECK: Supple, trachea midline. No JVD or lymphadenopathy. CARDIOVASCULAR: Regular rate and rhythm without murmurs, gallops, or rubs. RESPIRATORY: Breath sounds equal bilaterally. No accessory muscle use. GASTROINTESTINAL: Abdomen soft, non-tender, nondistended. MUSCULOSKELETAL: No cyanosis, or edema. BACK: Nontender without obvious deformity. No CVA tenderness. Patient has soft tissue swelling tenderness over the right fourth toe. Patient has soft tissue swelling tenderness the left fourth finger PIP joint. Decreased range of motion of the finger secondary to pain. Data Data Last Documented VS Vital Signs Date Time Temp Pulse Resp B/P Pulse Ox O2 Delivery O2 Flow Rate FiO2 06/01/17 09:19 98.5 85 16 138/78 97 Orders Finger ([id number]) (06/01/17 09:42) MDM Medical Decision Making Medical Screen Exam Complete: Yes Emergency Medical Condition: Yes Interpretation(s) Last Impressions Finger X-Ray 06/01/17941 Signed Impressions: Service Date/Time: Thursday, June 01, 2017 09:50 - CONCLUSION: Soft tissue swelling adjacent to the posterior fourth digit PIP joint. No fracture is identified. Omid Garcia MD Differential Diagnosis Differential diagnosis including contusion, sprain, fracture, dislocation. Narrative Course Of left 51-year-old female with left fourth finger injury and right fifth toe injury. Finger splint. Radiology read x-ray is negative for fracture. I explained to the patient could be a hairline fracture that may not be visible in x-ray Diagnosis Primary Impression: Sprain of finger of left hand Qualified Code: S63.635A - Sprain of interphalangeal joint of left ring finger , initial encounter Patient Instructions: General Instructions Additional Instructions: Ibuprofen for pain. Follow-up with personal physician. Follow-up with hand surgeon if persistent problem. Disposition: 01 DISCHARGE HOME Condition: Stable Loco Angeles MD Jun 01, 2017 09:46
--- NOTE | 2017-06-01 10:22 | RADRPT ---
EXAM DATE/TIME: 06/01/2017 09:50 [facility] COMPARISON: No previous studies available for comparison. INDICATIONS : Pain, left hand, 4th digit. MEDICAL HISTORY : Carcinoma, breast. Metastatic disease. Hypertension. SURGICAL HISTORY : Mastectomy, bilateral. Breast augmentation. ENCOUNTER: Initial ACUITY: 3 days PAIN SCORE: 5/10 LOCATION: Left hand, 4th digit. FINDINGS: 2 views of the left hand fourth digit demonstrate no fracture or dislocation. Mineralization is withi n normal limits. There is soft tissue swelling along the posterior aspect of the mid digit adjacent t o the proximal interphalangeal joint. No radiopaque foreign body is visualized. CONCLUSION: Soft tissue swelling adjacent to the posterior fourth digit PIP joint. No fracture is identified. Omid Garcia MD on June 01, 2017 at 10:18 Board Certified Radiologist. This report was verified electronically.
== END 2017-06-01 11:00 | disposition home or self-care (01) ==
LOC: PHED 09:17
DX: S63.635A Sprain of interphalangeal joint of left ring finger, initial encounter (principal); M79.674 Pain in right toe(s); X58.XXXA Exposure to other specified factors, initial encounter
CPT/HCPCS: 29130; 73140

== ENCOUNTER 2017-08-02 13:37 | Emergency (ER) | payer BC, OTHER ==
[~2017-08-02] VITALS: Ht 165.1 cm; Wt 54.0 kg
[2017-08-02 14:30] VITALS: BP 162/92; PULSE 80; RESP 17; TEMP 98.2; O2SAT 97
--- NOTE | 2017-08-02 14:53 | PD ---
HPI Chief Complaint: Psychiatric Symptoms Time Seen by Provider: 14:15 Travel History International Travel<30 days: No Contact w/Intl Traveler<30days: No Traveled to known affect area: No History of Present Illness HPI 51-year-old female presents to the emergency department under [place] act for psych evaluation after making a statement to law enforcement that she was depressed and wanted to kill herself. The patient says she has been depressed for a while secondary to battling breast cancer and recently finding out she has breast cancer again for the sixth time. She says she did make a statement but did not mean it. She says that she would never kill herself. Denies history of suicidal attempts. Denies suicidal ideation. Denies plan. Denies homicidal ideation. Reports occasional alcohol use. Denies illicit drug use. Currently takes medications for depression, but doesn't know the name of them. Has no current medical complaints. PFSH Past Medical History Blood Disorders: No Anxiety: Yes Depression: Yes Heart Rhythm Problems: No Cancer: Yes (BILATERAL BREAST METS TO SPINE AND CHEST WALL) Cardiovascular Problems: Yes High Cholesterol: No Chemotherapy: Yes (Breast CA) Chest Pain: No Congestive Heart Failure: No Cerebrovascular Accident: Yes (TIA) Diminished Hearing: No Endocrine: No Gastrointestinal Disorders: No Genitourinary: No Hypertension: Yes Immune Disorder: No Implanted Vascular Access Dvce: No Musculoskeletal: No Neurologic: Yes Psychiatric: Yes Reproductive: No Respiratory: No Radiation Therapy: Yes Tetanus Vaccination: Unknown ?: Not Menopausal: Yes Past Surgical History Mastectomy: Yes (BILATERAL FOR CA in 2003 , 2005 right breast tissue area) Other Surgery: Yes (BREAST AUGMENTATION/MASTECTOMIES ) Social History Alcohol Use: Yes (SOCIAL- wine) Tobacco Use: No (quit years ago social smoker) Substance Use: No Allergies-Medications (Allergen,Severity, Reaction): Coded Allergies: azithromycin (Unverified Allergy, Severe, UNKNOWN, 08/02/17) erythromycin base (Unverified Allergy, Severe, UNKNOWN, 08/02/17) morphine (Unverified Allergy, Severe, UNKNOWN, 08/02/17) penicillin G (Unverified Allergy, Severe, UNKNOWN, 08/02/17) Uncoded Allergies: MRI CONTRAST (Allergy, Severe, Anaphylaxis, 06/17/16) . Reported Meds & Prescriptions Reported Meds & Active Scripts Active Zofran Odt (Ondansetron Odt) 4 Mg Tab 4 Mg SL Q8HR PRN Lisinopril 5 Mg Tab 5 Mg PO DAILY Reported Vitamin E (Vitamin E Mixed) 100 Unit Tablet 1 Tab PO DAILY Magnesium (Magnesium Oxide) 400 Mg Tablet 1 Tab PO DAILY Calcium 500 +D (Calcium Carbonate-Cholecalciferol) 500-400 Mg-Unit Tab 1 Tab PO BID Venlafaxine ER 24 HR (Venlafaxine HCl) 75 Mg Cap 75 Mg PO DAILY Ibrance (Palbociclib) 75 Mg Capsule 1 Tab PO DAILY Review of Systems Except as stated in HPI: all other systems reviewed are Neg Physical Exam Narrative GENERAL: Well-nourished, well-developed female patient, in no acute distress SKIN: Warm and dry. HEAD: Atraumatic. Normocephalic. EYES: Pupils equal and round. ENT: Mucosa pink and moist. NECK: Supple. Trachea midline. CARDIOVASCULAR: Regular rate and rhythm. No murmur appreciated. RESPIRATORY: No accessory muscle use. Clear to auscultation. Breath sounds equal bilaterally. GASTROINTESTINAL: Abdomen soft, non-tender, nondistended. Hepatic and splenic margins not palpable. Bowel sounds are active 4 quadrants. MUSCULOSKELETAL: No obvious deformities. No clubbing. No cyanosis. No edema. NEUROLOGICAL: Awake and alert. Oriented 3. No obvious cranial nerve deficits. Motor grossly within normal limits. Normal speech. Moves all extremities. 5/5 strength to all extremities. PSYCHIATRIC: No delusional thought processes. No hallucinations. Data Data Last Documented VS Vital Signs Date Time Temp Pulse Resp B/P (MAP) Pulse Ox O2 Delivery O2 Flow Rate FiO2 08/02/17 14:30 98.2 80 17 162/92 (115) 97 Orders Orders Complete Blood Count With Diff (08/02/17 14:15) Comprehensive Metabolic Panel (08/02/17 14:15) Urinalysis - C+S If Indicated (08/02/17 14:15) Psych Screen (08/02/17 14:15) Drug Screen, Random Urine (08/02/17 14:15) Alcohol (Ethanol) (08/02/17 14:15) Salicylates (Aspirin) (08/02/17 14:15) Tylenol (Acetaminophen) (08/02/17 14:15) MDM Medical Decision Making Medical Screen Exam Complete: Yes Emergency Medical Condition: Yes Medical Record Reviewed: Yes Differential Diagnosis Medical clearance for psychiatric examination, suicidal threat, depression Narrative Course Patient presents under a [place] act. Physical examination and vital signs are essentially unremarkable. Patient has no medical complaints to report. Psych screen has been ordered. If the laboratory results are unremarkable, the patient will be medically cleared for psychiatric evaluation and disposition. Diagnosis Primary Impression: Medical clearance for psychiatric admission Condition: Stable Leticia De La O Aug 02, 2017 14:53
[2017-08-02 15:17] LABS: AUTOMATED NEUTROPHIL # 0.8 TH/MM3 (1.8-7.7); BASOPHIL % 1.3 % (0.0-2.0); EOSINOPHIL % 0.6 % (0.0-4.0); HEMATOCRIT 36.5 % (35.0-46.0); LYMPH % 42.6 % (9.0-44.0); LYMPHOCYTE # 0.9 TH/MM3 (1.0-4.8); MEAN CELL VOLUME 105.5 FL (80.0-100.0); MEAN CORPUSCULAR HEMOGLOBIN 36.2 PG (27.0-34.0); MEAN CORPUSCULAR HGB CONC 34.3 % (32.0-36.0); MONO % 14.5 % (0.0-8.0); PLATELET COUNT 226 TH/MM3 (150-450); RED BLOOD COUNT 3.46 MIL/MM3 (4.00-5.30); RED CELL DISTRIBUTION WIDTH 15.8 % (11.6-17.2)
[2017-08-02 15:18] LABS: HEMO FLAGS AUTO DIFF
[2017-08-02 15:30] LABS: BLOOD, URINE NEG (NEG); COMMENT (UR) CULT NOT INDICATED; CULTURE IF INDICATED CULT NOT INDICATED; GLUCOSE,URINE NEG (NEG); KETONE, URINE NEG (NEG); NITRITE,URINE NEG (NEG); PH, URINE 5.5 (5.0-8.5); URINE COLOR LIGHT-YELLOW (YELLW/STRAW)
[2017-08-02 15:45] LABS: ALT (GPT) 41 U/L (10-53); ANION GAP 4 MEQ/L (5-15); AST (GOT) 56 U/L (15-37); BICARBONATE 30.1 MEQ/L (21.0-32.0); BLOOD UREA NITROGEN 9 MG/DL (7-18); CHLORIDE 109 MEQ/L (98-107); GLOMERULAR FILTRATION RATE 83 ML/MIN (>89); POTASSIUM 3.6 MEQ/L (3.5-5.1); SODIUM (NA) 143 MEQ/L (136-145)
[2017-08-02 15:47] LABS: ALKALINE PHOSPHATASE 71 U/L (45-117); TOTAL BILIRUBIN ADULT 0.2 MG/DL (0.2-1.0)
[2017-08-02 15:51] LABS: ACETAMINOPHEN LESS THAN 2.0 MCG/ML (10.0-30.0)
[2017-08-02 16:05] LABS: ALCOHOL 346 MG/DL (0-5)
[2017-08-02 16:08] LABS: BANDS 1 % (0-6); EOSINOPHILS 2 % (0-4); POLYS (SEG NEUTROPHILS) 48 % (16-70); WBC DIFF SAMPLE 100
[2017-08-02 16:09] LABS: PLATELET ESTIMATE SMEAR NORMAL (NORMAL); PLATELET MORPHOLOGY NORMAL (NORMAL); SCAN/DIFF FINAL DIFF MANUAL
[2017-08-03 04:40] VITALS: PULSE 80; RESP 18; O2SAT 94
[2017-08-03 04:53] VITALS: BP 177/89; PULSE 92; RESP 18; O2SAT 97
[2017-08-03 08:00] VITALS: BP 167/102; PULSE 84; RESP 15; TEMP 98.4; O2SAT 98
[2017-08-03] MEDS ORDERED: LISINOPRIL 10 MG TAB PO ONE (08:30)
[2017-08-03 09:35] VITALS: BP 178/97
--- NOTE | 2017-08-03 15:56 | PD ---
Physical Exam Date Seen by Provider: Aug 03, 2017 Time Seen by Provider: 15:55 Narrative 51-year-old female brought in under the Phelps act yesterday and medically cleared, has been evaluated by the psychiatric services and cleared for psychiatric discharge. Patient remained medically stable for discharge at this time. Patient's plan to follow up with her AA group. Data Data Last Documented VS Vital Signs Date Time Temp Pulse Resp B/P (MAP) Pulse Ox O2 Delivery O2 Flow Rate FiO2 08/03/17 13:33 08/03/17 08:00 98.4 84 15 98 Room Air 08/03/17 04:40 2.00 Orders Orders Complete Blood Count With Diff (08/02/17 14:15) Comprehensive Metabolic Panel (08/02/17 14:15) Urinalysis - C+S If Indicated (08/02/17 14:15) Psych Screen (08/02/17 14:15) Drug Screen, Random Urine (08/02/17 14:15) Alcohol (Ethanol) (08/02/17 14:15) Salicylates (Aspirin) (08/02/17 14:15) Tylenol (Acetaminophen) (08/02/17 14:15) Diet Regular Basic (08/02/17 Dinner) Diet Regular Basic (08/03/17 Breakfast) Lisinopril (Prinivil) (08/03/17 08:30) Hydroxyzine Pamoate (Vistaril) (08/03/17 09:45) Diet Regular Basic (08/03/17 Dinner) Labs Laboratory Tests Test 08/02/17 14:50 White Blood Count 2.0 TH/MM3 Red Blood Count 3.46 MIL/MM3 Hemoglobin 12.5 GM/DL Hematocrit 36.5 % Mean Corpuscular Volume 105.5 FL Mean Corpuscular Hemoglobin 36.2 PG Mean Corpuscular Hemoglobin Concent 34.3 % Red Cell Distribution Width 15.8 % Platelet Count 226 TH/MM3 Mean Platelet Volume 7.4 FL Neutrophils (%) (Auto) 41.0 % Lymphocytes (%) (Auto) 42.6 % Monocytes (%) (Auto) 14.5 % Eosinophils (%) (Auto) 0.6 % Basophils (%) (Auto) 1.3 % Neutrophils # (Auto) 0.8 TH/MM3 Lymphocytes # (Auto) 0.9 TH/MM3 Monocytes # (Auto) 0.3 TH/MM3 Eosinophils # (Auto) 0.0 TH/MM3 Basophils # (Auto) 0.0 TH/MM3 CBC Comment AUTO DIFF Differential Total Cells Counted 100 Neutrophils % (Manual) 48 % Band Neutrophils % 1 % Lymphocytes % 37 % Monocytes % 12 % Eosinophils % 2 % Neutrophils # (Manual) 1.0 TH/MM3 Differential Comment FINAL DIFF MANUAL Platelet Estimate NORMAL Platelet Morphology Comment NORMAL Urine Color LIGHT-YELLOW Urine Turbidity CLEAR Urine pH 5.5 Urine Specific [place] 1.006 Urine Protein NEG mg/dL Urine Glucose (UA) NEG mg/dL Urine Ketones NEG mg/dL Urine Occult Blood NEG Urine Nitrite NEG Urine Bilirubin NEG Urine Urobilinogen LESS THAN 2.0 MG/DL Urine Leukocyte Esterase NEG Microscopic Urinalysis Comment CULT NOT INDICATED Blood Urea Nitrogen 9 MG/DL Creatinine 0.73 MG/DL Random Glucose 92 MG/DL Total Protein 7.8 GM/DL Albumin 4.2 GM/DL Calcium Level 8.4 MG/DL Alkaline Phosphatase 71 U/L Aspartate Amino Transf (AST/SGOT) 56 U/L Alanine Aminotransferase (ALT/SGPT) 41 U/L Total Bilirubin 0.2 MG/DL Sodium Level 143 MEQ/L Potassium Level 3.6 MEQ/L Chloride Level 109 MEQ/L Carbon Dioxide Level 30.1 MEQ/L Anion Gap 4 MEQ/L Estimat Glomerular Filtration Rate 83 ML/MIN Salicylates Level LESS THAN 1.7 MG/DL Urine Opiates Screen NEG Acetaminophen Level LESS THAN 2.0 MCG/ML Urine Barbiturates Screen NEG Urine Amphetamines Screen NEG Urine Benzodiazepines Screen NEG Urine Cocaine Screen NEG Urine Cannabinoids Screen NEG Ethyl Alcohol Level 346 MG/DL [facility] Medical Record Reviewed: Yes Supervised Visit with NATALIE: Yes Narrative Course 51-year-old female brought in under the [employer] act yesterday and medically cleared, has been evaluated by the psychiatric services and cleared for psychiatric discharge. Patient remained medically stable for discharge at this time. Patient's plan to follow up with her AA group. Diagnosis Primary Impression: Medical clearance for psychiatric admission Patient Instructions: General Instructions Departure Forms: Tests/Procedures Disposition: 01 DISCHARGE HOME Condition: Stable Jamel Alberto Aug 03, 2017 15:56
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
[2017-08-03 16:19] VITALS: BP 158/88; TEMP 98.2
== END 2017-08-03 17:24 | disposition home or self-care (01) ==
LOC: NEPD 13:37 → NEPJ 08-03 17:24
DX: F32.9 Major depressive disorder, single episode, unspecified (principal); C50.919 Malignant neoplasm of unspecified site of unspecified female breast; F41.9 Anxiety disorder, unspecified; I10 Essential (primary) hypertension; Z79.899 Other long term (current) drug therapy; Z88.5 Allergy status to narcotic agent; Z88.0 Allergy status to penicillin; Z88.1 Allergy status to other antibiotic agents; Z86.73 Personal history of transient ischemic attack (TIA), and cerebral infarction without residual deficits
CPT/HCPCS: 80053; 80307; 81001; 85007; 85027; 99283

== ENCOUNTER 2017-12-28 18:14 | Emergency (ER) | payer BC, OTHER ==
[~2017-12-28] VITALS: Ht 165.1 cm; Wt 53.0 kg
[2017-12-28 18:24] VITALS: BP 189/121; PULSE 107; RESP 22; TEMP 98.3; O2SAT 98
[2017-12-28] MEDS ORDERED: SODIUM CHLOR 0.9% 1000 ML INJ 1,000 ML IV SCH (18:43)
[2017-12-28] MEDS ORDERED: SODIUM CHLORIDE 0.9% FLUSH 10 ML FLUSH IV FLUSH PRN (18:45)
[2017-12-28] MEDS ORDERED: ONDANSETRON HCL 4 MG/2 ML VIAL IVP ONE (18:45)
[2017-12-28 19:00] VITALS: RESP 18; O2SAT 98
[2017-12-28 19:34] LABS: CHLORIDE 98 MEQ/L (98-107); SODIUM (NA) 137 MEQ/L (136-145)
[2017-12-28 19:37] LABS: CALCIUM 9.3 MG/DL (8.5-10.1)
[2017-12-28 19:38] LABS: ALBUMIN 4.5 GM/DL (3.4-5.0); BICARBONATE 23.7 MEQ/L (21.0-32.0); BLOOD UREA NITROGEN 12 MG/DL (7-18); GLUCOSE,RANDOM 114 MG/DL (74-106)
[2017-12-28 19:39] LABS: BILIRUBIN, URINE SMALL (NEG); BLOOD, URINE SMALL (NEG); GLUCOSE,URINE 100 mg/dL (NEG); KETONE, URINE 80 OR GREATER mg/dL (NEG); NITRITE,URINE POS (NEG); URINE LEUKOCYTE ESTERASE MOD (NEG)
[2017-12-28 19:40] LABS: ALT (GPT) 25 U/L (10-53); AST (GOT) 46 U/L (15-37); URINE COLOR ORANGE (YELLW/STRAW)
[2017-12-28 19:41] LABS: GLOMERULAR FILTRATION RATE 58 ML/MIN (>89)
[2017-12-28 19:42] LABS: TOTAL BILIRUBIN ADULT 0.9 MG/DL (0.2-1.0)
[2017-12-28 19:43] LABS: ALKALINE PHOSPHATASE 93 U/L (45-117)
[2017-12-28 19:47] LABS: AUTOMATED NEUTROPHIL # 5.6 TH/MM3 (1.8-7.7); BASOPHIL % 0.4 % (0.0-2.0); EOSINOPHIL % 0.1 % (0.0-4.0); HEMATOCRIT 41.3 % (35.0-46.0); HEMOGLOBIN 14.3 GM/DL (11.6-15.3); LYMPH % 13.5 % (9.0-44.0); LYMPHOCYTE # 0.9 TH/MM3 (1.0-4.8); MEAN CELL VOLUME 100.1 FL (80.0-100.0); MEAN CORPUSCULAR HEMOGLOBIN 34.6 PG (27.0-34.0); MEAN CORPUSCULAR HGB CONC 34.6 % (32.0-36.0); MONO % 3.2 % (0.0-8.0); MONOCYTE # 0.2 TH/MM3 (0-0.9); NEUT % 82.8 % (16.0-70.0); PLATELET COUNT 353 TH/MM3 (150-450); RED BLOOD COUNT 4.12 MIL/MM3 (4.00-5.30); RED CELL DISTRIBUTION WIDTH 15.3 % (11.6-17.2); SQUAMOUS EPITHELIAL CELL URINE 0-5 /hpf (0-5); WBC, URINE INNUM /hpf (0-5); WHITE BLOOD CELL CLUMPS MOD; WHITE BLOOD COUNT 6.7 TH/MM3 (4.0-11.0)
[2017-12-28 19:48] LABS: BACTERIA, URINE MOD /hpf
[2017-12-28 20:34] VITALS: BP 153/85; PULSE 92; RESP 18; O2SAT 99
[2017-12-28] MEDS ORDERED: LEVOFLOXACIN 750 MG TAB PO ONE (21:15)
--- NOTE | 2017-12-28 21:15 | PD ---
HPI . GI complaint Chief Complaint: GI Complaint Time Seen by Provider: 19:36 Travel History International Travel<30 days: No Contact w/Intl Traveler<30days: No Traveled to known affect area: No History of Present Illness HPI 52-year-old female complains of having lower abdominal pain, generalized malaise , dysuria consistent with prior urinary tract infection. Patient vomiting today. Unable to keep anything down. Patient has unquantified tactile fever. There is no hematemesis, no melena or hematochezia. No vaginal discharge or bleeding. PFSH Past Medical History Narrative Medical Past medical history reviewed Blood Disorders: No Anxiety: Yes Depression: Yes Heart Rhythm Problems: No Cancer: Yes (BILATERAL BREAST METS TO SPINE AND CHEST WALL) Cardiovascular Problems: Yes (HTN) High Cholesterol: No Chemotherapy: Yes (Breast CA) Chest Pain: No Congestive Heart Failure: No Cerebrovascular Accident: Yes (TIA) Diminished Hearing: No Endocrine: No Gastrointestinal Disorders: No Genitourinary: No Hypertension: Yes Immune Disorder: No Implanted Vascular Access Dvce: No Musculoskeletal: No Neurologic: Yes Psychiatric: Yes Reproductive: No Respiratory: No Radiation Therapy: Yes Tetanus Vaccination: Unknown Influenza Vaccination: Yes ?: Not Menopausal: Yes Past Surgical History Mastectomy: Yes (BILATERAL FOR CA in 2003 , 2005 right breast tissue area) Other Surgery: Yes (BREAST AUGMENTATION/MASTECTOMIES ) Social History Alcohol Use: Yes (SOCIAL- wine) Tobacco Use: No (quit years ago social smoker) Substance Use: Yes Allergies-Medications (Allergen,Severity, Reaction): Coded Allergies: azithromycin (Unverified Allergy, Severe, UNKNOWN, 12/28/17) erythromycin base (Unverified Allergy, Severe, UNKNOWN, 12/28/17) morphine (Unverified Allergy, Severe, UNKNOWN, 12/28/17) penicillin G (Unverified Allergy, Severe, UNKNOWN, 12/28/17) Uncoded Allergies: MRI CONTRAST (Allergy, Severe, Anaphylaxis, 12/28/17) Reported Meds & Prescriptions Reported Meds & Active Scripts Active Lisinopril 5 Mg Tab 5 Mg PO DAILY Reported Magnesium (Magnesium Oxide) 400 Mg Tablet 1 Tab PO DAILY Venlafaxine ER 24 HR (Venlafaxine HCl) 75 Mg Cap 75 Mg PO DAILY Ibrance (Palbociclib) 75 Mg Capsule 1 Tab PO DAILY Narrative Medication Allergies and medications reviewed Review of Systems Except as stated in HPI: all other systems reviewed are Neg General / Constitutional: No: Fever Eyes: No: Visual changes HENT: No: Headaches Cardiovascular: No: Chest Pain or Discomfort Respiratory: No: Shortness of Breath Gastrointestinal: No: Abdominal Pain, Hematemesis, Hematochezia, Constipation, Changes in Bowel Habits Genitourinary: Positive: Urgency, Frequency, Dysuria, Pelvic Pain, Flank Pain, No: Hematuria, Oliguria, Incontinence, Discharge, Vaginal Bleeding Musculoskeletal: No: Pain Skin: No Rash Neurologic: No: Weakness Psychiatric: No: Depression Endocrine: No: Polydipsia Hematologic/Lymphatic: No: Easy Bruising Physical Exam Narrative GENERAL: Awake alert oriented 3 no acute distress no signs of femoral normal and stable SKIN: Warm and dry. Somewhat sallow appearing, no diaphoresis cyanosis or pallor no rash HEAD: Atraumatic. Normocephalic. EYES: Pupils equal and round. No scleral icterus. No injection or drainage. ENT: No nasal bleeding or discharge. Mucous membranes pink and moist. NECK: Trachea midline. No JVD. Perform range of motion CARDIOVASCULAR: Regular rate and rhythm. S1-S2 no murmurs rubs gallops RESPIRATORY: No accessory muscle use. Clear to auscultation. Breath sounds equal bilaterally. GASTROINTESTINAL: Abdomen soft, non-tender, nondistended. Hepatic and splenic margins not palpable. MUSCULOSKELETAL: Extremities without clubbing, cyanosis, or edema. No obvious deformities. NEUROLOGICAL: Awake and alert. No obvious cranial nerve deficits. Motor grossly within normal limits. Five out of 5 muscle strength in the arms and legs. Normal speech. PSYCHIATRIC: Appropriate mood and affect; insight and judgment normal. Data Data Last Documented VS Vital Signs Date Time Temp Pulse Resp B/P (MAP) Pulse Ox O2 Delivery O2 Flow Rate FiO2 12/28/17 21:31 89 18 98 12/28/17 21:30 Room Air 12/28/17 18:24 98.3 Orders Orders Complete Blood Count With Diff (12/28/17 18:43) Comprehensive Metabolic Panel (12/28/17 18:43) Lipase (12/28/17 18:43) Urinalysis - C+S If Indicated (12/28/17 18:43) Iv Access Insert/Monitor (12/28/17 18:43) Ecg Monitoring (12/28/17 18:43) Oximetry (12/28/17 18:43) Ondansetron Inj (Zofran Inj) (12/28/17 18:45) Sodium Chlor 0.9% 1000 Ml Inj (Ns 1000 M (12/28/17 18:43) Sodium Chloride 0.9% Flush (Ns Flush) (12/28/17 18:45) Electrocardiogram (12/28/17 18:43) Influenzae A/B Antigen (12/28/17 19:39) Urine Culture (12/28/17 19:10) Levofloxacin (Levaquin) (12/28/17 21:15) Labs Laboratory Tests Test 12/28/17 19:10 White Blood Count 6.7 TH/MM3 Red Blood Count 4.12 MIL/MM3 Hemoglobin 14.3 GM/DL Hematocrit 41.3 % Mean Corpuscular Volume 100.1 FL Mean Corpuscular Hemoglobin 34.6 PG Mean Corpuscular Hemoglobin Concent 34.6 % Red Cell Distribution Width 15.3 % Platelet Count 353 TH/MM3 Mean Platelet Volume 7.0 FL Neutrophils (%) (Auto) 82.8 % Lymphocytes (%) (Auto) 13.5 % Monocytes (%) (Auto) 3.2 % Eosinophils (%) (Auto) 0.1 % Basophils (%) (Auto) 0.4 % Neutrophils # (Auto) 5.6 TH/MM3 Lymphocytes # (Auto) 0.9 TH/MM3 Monocytes # (Auto) 0.2 TH/MM3 Eosinophils # (Auto) 0.0 TH/MM3 Basophils # (Auto) 0.0 TH/MM3 CBC Comment DIFF FINAL Differential Comment Urine Collection Type CLEAN CATCH Urine Color ORANGE Urine Turbidity SL CLOUDY Urine pH 7.0 Urine Specific [place] 1.020 Urine Protein 100 mg/dL Urine Glucose (UA) 100 mg/dL Urine Ketones 80 OR GREATER mg/dL Urine Occult Blood SMALL Urine Nitrite POS Urine Bilirubin SMALL Urine Urobilinogen 2.0 MG/DL Urine Leukocyte Esterase MOD Urine RBC 4-9 /hpf Urine WBC INNUM /hpf Urine WBC Clumps MOD Urine Squamous Epithelial Cells 0-5 /hpf Urine Bacteria MOD /hpf Microscopic Urinalysis Comment CULTURE INDICATED Blood Urea Nitrogen 12 MG/DL Creatinine 1.00 MG/DL Random Glucose 114 MG/DL Total Protein 9.0 GM/DL Albumin 4.5 GM/DL Calcium Level 9.3 MG/DL Alkaline Phosphatase 93 U/L Aspartate Amino Transf (AST/SGOT) 46 U/L Alanine Aminotransferase (ALT/SGPT) 25 U/L Total Bilirubin 0.9 MG/DL Sodium Level 137 MEQ/L Potassium Level 4.2 MEQ/L Chloride Level 98 MEQ/L Carbon Dioxide Level 23.7 MEQ/L Anion Gap 15 MEQ/L Estimat Glomerular Filtration Rate 58 ML/MIN Lipase 115 U/L MDM Medical Decision Making Medical Screen Exam Complete: Yes Emergency Medical Condition: Yes Medical Record Reviewed: Yes Differential Diagnosis Dehydration, pyelonephritis Narrative Course Patient's Dr. examination reviewed, no significant rales with the exception of patient's UA which is consistent with a urinary tract infection. Patient feeling improved after IV fluids. Levaquin added to patient's treatment regimen Diagnosis Primary Impression: Pyelonephritis Patient Instructions: General Instructions, Kidney Infection (ED) Additional Instructions: Levaquin 750 mg daily for 10 days. Drink plenty of fluids. Tylenol/Motrin for pain. Follow-up with your doctor return for worsening. Scripts Levofloxacin (Levaquin) 750 Mg Tablet 750 MG PO DAILY for Infection for 10 Days, #10 TAB 0 Refills Prov: Suleman Cruz MD 12/28/17 Disposition: 01 DISCHARGE HOME Condition: Stable Suleman Cruz MD Dec 28, 2017 21:15
[2017-12-28 21:30] VITALS: BP 150/82; PULSE 88; RESP 18; O2SAT 98
[2017-12-28] MEDS ORDERED: LEVA750T9 PO (21:34)
--- NOTE | 2017-12-29 10:07 | EKG ---
Date Performed: 12/28/2017 Time Performed: 20:05:06 PTAGE: 52 years EKG: Sinus rhythm WITH FREQUENT VENTRICULAR PREMATURE COMPLEXES WITH OCCASIONAL SUPRAVENTRICULAR PREMATURE COMPLEXES N ONSPECIFIC T-WAVE ABNORMALITY ABNORMAL RHYTHM ECG PREVIOUS TRACING : 04/25/2017 18.14 DOCTOR: Francisco Hall Interpretating Date/Time 12/29/2017 10:05:39
== END 2017-12-28 21:47 | disposition home or self-care (01) ==
LOC: PHED 18:14
DX: N12 Tubulo-interstitial nephritis, not specified as acute or chronic (principal); B96.20 Unspecified Escherichia coli [E. coli] as the cause of diseases classified elsewhere; R94.31 Abnormal electrocardiogram [ECG] [EKG]; I10 Essential (primary) hypertension; F41.9 Anxiety disorder, unspecified; F32.9 Major depressive disorder, single episode, unspecified; C50.912 Malignant neoplasm of unspecified site of left female breast; C50.911 Malignant neoplasm of unspecified site of right female breast; Z87.891 Personal history of nicotine dependence
CPT/HCPCS: 80053; 81001; 83690; 85025; 87077; 87086; 87186; 87804; 93005; 96361; 96374; 99284; J2405; J7030

== ENCOUNTER 2018-03-16 18:18 | Observation (INO) | payer BC ==
[~2018-03-16] VITALS: Ht 165.1 cm; Wt 62.0 kg
[~2018-03-16 18:18] MED LIST changes: -CALC1TAB12 PO; +LEVA750T9 PO; -VITA100T67 PO; -ZOFR4TAB3 SL
[2018-03-16 18:20] VITALS: BP 176/102; PULSE 109; RESP 18; TEMP 98.1; O2SAT 98
[2018-03-16 18:38] LABS: BILIRUBIN, URINE NEG (NEG); BLOOD, URINE NEG (NEG); GLUCOSE,URINE NEG (NEG); KETONE, URINE 40 mg/dL (NEG); NITRITE,URINE NEG (NEG); URINE COLOR YELLOW (YELLW/STRAW); URINE LEUKOCYTE ESTERASE NEG (NEG)
[2018-03-16] MEDS ORDERED: LISI10TA3 PO (18:41)
[2018-03-16 18:43] LABS: RBC, URINE 0-3 /hpf (0-3); SQUAMOUS EPITHELIAL CELL URINE 0-5 /hpf (0-5); WBC, URINE 0-2 /hpf (0-5)
[2018-03-16] MEDS ORDERED: SODIUM CHLOR 0.9% 1000 ML INJ 1,000 ML IV ONE ×2 (18:50→20:00)
[2018-03-16] MEDS ORDERED: SODIUM CHLORIDE 0.9% FLUSH 10 ML FLUSH IV FLUSH PRN ×2 (19:00→23:15)
[2018-03-16] MEDS ORDERED: ONDANSETRON ODT 4 MG TAB PO ONE (19:00)
[2018-03-16 19:12] LABS: BASOPHIL % 0.9 % (0.0-2.0); EOSINOPHIL % 0.1 % (0.0-4.0); HEMOGLOBIN 12.1 GM/DL (11.6-15.3); LYMPH % 18.6 % (9.0-44.0); LYMPHOCYTE # 0.5 TH/MM3 (1.0-4.8); MEAN CELL VOLUME 101.7 FL (80.0-100.0); MEAN CORPUSCULAR HEMOGLOBIN 35.1 PG (27.0-34.0); MEAN CORPUSCULAR HGB CONC 34.5 % (32.0-36.0); MONO % 9.5 % (0.0-8.0); MONOCYTE # 0.3 TH/MM3 (0-0.9); NEUT % 70.9 % (16.0-70.0); PLATELET COUNT 184 TH/MM3 (150-450); RED BLOOD COUNT 3.44 MIL/MM3 (4.00-5.30); RED CELL DISTRIBUTION WIDTH 14.3 % (11.6-17.2); WHITE BLOOD COUNT 2.8 TH/MM3 (4.0-11.0)
[2018-03-16 19:17] LABS: CHLORIDE 104 MEQ/L (98-107); SODIUM (NA) 138 MEQ/L (136-145)
--- NOTE | 2018-03-16 19:18 | PD ---
HPI Chief Complaint: Complaint Time Seen by Provider: 18:33 Travel History International Travel<30 days: No Contact w/Intl Traveler<30days: No Traveled to known affect area: No History of Present Illness HPI Patient presents to the emergency department complaining of vomiting since 5 PM. Is that she is vomiting whenever she takes in by mouth. Seen here approximately 1 month ago for similar symptoms and was diagnosed bladder infection. States that she drinks heavily and yesterday drank a bottle of vodka. Complaining of feeling hot and cold but no definitive fever. Positive dysuria, no hematuria, no vaginal discharge, no chest pain, but reports abdominal soreness with vomiting (worse in suprapubic area) and shortness of breath because she feels like she is having a panic attack. She denies diarrhea and has no prior history of STD. Denies history of alcohol withdrawal seizures or DTs. She is a metastatic breast cancer patient with metastases to sternum. States she finished chemo/radiation in 2006. PFSH Past Medical History Blood Disorders: No Anxiety: Yes Depression: Yes Heart Rhythm Problems: No Cancer: Yes (BILATERAL BREAST METS TO SPINE AND CHEST WALL) Cardiovascular Problems: Yes (HTN) High Cholesterol: No Chemotherapy: Yes (Breast CA) Chest Pain: No Congestive Heart Failure: No Cerebrovascular Accident: Yes (TIA) Diminished Hearing: No Endocrine: No Gastrointestinal Disorders: No Genitourinary: No Hypertension: Yes Immune Disorder: No Implanted Vascular Access Dvce: No Musculoskeletal: No Neurologic: Yes Psychiatric: Yes Reproductive: No Respiratory: No Radiation Therapy: Yes ?: Not Menopausal: Yes Past Surgical History Mastectomy: Yes (BILATERAL FOR CA in 2003 , 2005 right breast tissue area) Other Surgery: Yes (BREAST AUGMENTATION/MASTECTOMIES ) Social History Alcohol Use: Yes (binge drinker: vodka yesterday) Tobacco Use: No (quit years ago social smoker) Substance Use: Yes (alcohol) Allergies-Medications (Allergen,Severity, Reaction): Coded Allergies: azithromycin (Unverified Allergy, Severe, UNKNOWN, 03/16/18) erythromycin base (Unverified Allergy, Severe, UNKNOWN, 03/16/18) morphine (Unverified Allergy, Severe, UNKNOWN, 03/16/18) penicillin G (Unverified Allergy, Severe, UNKNOWN, 03/16/18) Uncoded Allergies: MRI CONTRAST (Allergy, Severe, Anaphylaxis, 12/28/17) Reported Meds & Prescriptions Reported Meds & Active Scripts Active Reported Lisinopril 10 Mg Tab 10 Mg PO DAILY Venlafaxine ER 24 HR (Venlafaxine HCl) 75 Mg Cap 75 Mg PO DAILY Ibrance (Palbociclib) 75 Mg Capsule 1 Tab PO DAILY Review of Systems Except as stated in HPI: all other systems reviewed are Neg Physical Exam Narrative GENERAL: Positive disc SKIN: Focused skin assessment warm/dry. HEAD: Atraumatic. Normocephalic. EYES: Ocular muscles intact bilaterally. No scleral icterus. No injection or drainage. ENT: No nasal bleeding or discharge. Mucous membranes pink and moist. NECK: Trachea midline. No JVD. CARDIOVASCULAR: Regular rate and rhythm. No murmur appreciated. RESPIRATORY: No accessory muscle use. Clear to auscultation. Breath sounds equal bilaterally. GASTROINTESTINAL: Abdomen soft, suprapubic tenderness to palpation and epigastric tenderness to palpation, nondistended. Positive CVA tenderness. MUSCULOSKELETAL: No obvious deformities. No clubbing. No cyanosis. No edema. NEUROLOGICAL: Awake and alert. No obvious cranial nerve deficits. Motor grossly within normal limits. Normal speech. PSYCHIATRIC: Appropriate mood and affect; insight and judgment normal. Data Data Last Documented VS Vital Signs Date Time Temp Pulse Resp B/P (MAP) Pulse Ox O2 Delivery O2 Flow Rate FiO2 03/16/18 18:20 98.1 109 18 176/102 (126) 98 Orders Orders Urinalysis - C+S If Indicated (03/16/18 18:24) Complete Blood Count With Diff (03/16/18 18:50) Comprehensive Metabolic Panel (03/16/18 18:50) Ecg Monitoring (03/16/18 18:50) Iv Access Insert/Monitor (03/16/18 18:50) Sodium Chlor 0.9% 1000 Ml Inj (Ns 1000 M (03/16/18 18:50) Lipase (03/16/18 18:50) Prothrombin Time / Inr (Pt) (03/16/18 18:50) Act Partial Throm Time (Ptt) (03/16/18 18:50) Sodium Chloride 0.9% Flush (Ns Flush) (03/16/18 19:00) Ondansetron Odt (Zofran Odt) (03/16/18 19:00) Lactic Acid (03/16/18 19:52) Sodium Chlor 0.9% 1000 Ml Inj (Ns 1000 M (03/16/18 20:00) Potassium Chloride (Kcl) (03/16/18 20:00) Ct Abd/Pel W Iv Contrast(Rout) (03/16/18 19:57) Labs Laboratory Tests Test 03/16/18 18:30 03/16/18 18:55 Urine Color YELLOW Urine Turbidity CLEAR Urine pH 7.0 Urine Specific [place] 1.015 Urine Protein 30 mg/dL Urine Glucose (UA) NEG mg/dL Urine Ketones 40 mg/dL Urine Occult Blood NEG Urine Nitrite NEG Urine Bilirubin NEG Urine Urobilinogen 0.2 MG/DL Urine Leukocyte Esterase NEG Urine RBC 0-3 /hpf Urine WBC 0-2 /hpf Urine Squamous Epithelial Cells 0-5 /hpf Urine Bacteria NONE /hpf Microscopic Urinalysis Comment CULT NOT INDICATED White Blood Count 2.8 TH/MM3 Red Blood Count 3.44 MIL/MM3 Hemoglobin 12.1 GM/DL Hematocrit 35.0 % Mean Corpuscular Volume 101.7 FL Mean Corpuscular Hemoglobin 35.1 PG Mean Corpuscular Hemoglobin Concent 34.5 % Red Cell Distribution Width 14.3 % Platelet Count 184 TH/MM3 Mean Platelet Volume 7.0 FL Neutrophils (%) (Auto) 70.9 % Lymphocytes (%) (Auto) 18.6 % Monocytes (%) (Auto) 9.5 % Eosinophils (%) (Auto) 0.1 % Basophils (%) (Auto) 0.9 % Neutrophils # (Auto) 2.0 TH/MM3 Lymphocytes # (Auto) 0.5 TH/MM3 Monocytes # (Auto) 0.3 TH/MM3 Eosinophils # (Auto) 0.0 TH/MM3 Basophils # (Auto) 0.0 TH/MM3 CBC Comment DIFF FINAL Differential Comment Prothrombin Time 10.6 SEC Prothromb Time International Ratio 1.0 RATIO Activated Partial Thromboplast Time 22.8 SEC Blood Urea Nitrogen 10 MG/DL Creatinine 0.76 MG/DL Random Glucose 103 MG/DL Total Protein 8.1 GM/DL Albumin 4.1 GM/DL Calcium Level 8.9 MG/DL Alkaline Phosphatase 83 U/L Aspartate Amino Transf (AST/SGOT) 53 U/L Alanine Aminotransferase (ALT/SGPT) 31 U/L Total Bilirubin 0.4 MG/DL Sodium Level 138 MEQ/L Potassium Level 3.4 MEQ/L Chloride Level 104 MEQ/L Carbon Dioxide Level 17.5 MEQ/L Anion Gap 17 MEQ/L Estimat Glomerular Filtration Rate 79 ML/MIN Lipase 155 U/L MDM Medical Decision Making Medical Screen Exam Complete: Yes Emergency Medical Condition: Yes Interpretation(s) Labs: Potassium decreased, AST increased, CBC 2.8, UA negative, lipase within normal limits Differential Diagnosis UTI, pyelonephritis, pancreatitis, GERD, PUD Narrative Course Patient presents to the emergency department complaining of vomiting and dysuria. Patient placed on monitor and storage bin tender, IV access obtained, labs sent. Patient given 4 mg Zofran ODT and a liter IV normal saline. 1956: Written for another liter of IV fluids and [address] scan abdomen and pelvis ordered. 2005: Patient signed out to Dr. Leger for CT results and lactate level pending. Dary Dodd MD March 16, 2018 19:18
[2018-03-16 19:20] LABS: CALCIUM 8.9 MG/DL (8.5-10.1)
[2018-03-16 19:21] LABS: ALBUMIN 4.1 GM/DL (3.4-5.0); BICARBONATE 17.5 MEQ/L (21.0-32.0); BLOOD UREA NITROGEN 10 MG/DL (7-18); GLUCOSE,RANDOM 103 MG/DL (74-106)
[2018-03-16 19:22] LABS: PROTHROMBIN TIME - PATIENT 10.6 SEC (9.8-11.6)
[2018-03-16 19:23] LABS: ALT (GPT) 31 U/L (10-53); AST (GOT) 53 U/L (15-37)
[2018-03-16 19:24] LABS: CREATININE 0.76 MG/DL (0.50-1.00); GLOMERULAR FILTRATION RATE 79 ML/MIN (>89)
[2018-03-16 19:25] LABS: TOTAL BILIRUBIN ADULT 0.4 MG/DL (0.2-1.0); TOTAL PROTEIN 8.1 GM/DL (6.4-8.2)
[2018-03-16 19:26] LABS: ALKALINE PHOSPHATASE 83 U/L (45-117)
[2018-03-16] MEDS ORDERED: POTASSIUM CHLORIDE 10 MEQ CONTROLLED RELEASE TAB PO ONE (20:00)
[2018-03-16 20:15] VITALS: BP 146/95; PULSE 100; RESP 20; O2SAT 98
--- NOTE | 2018-03-16 20:19 | PD ---
Physical Exam Date Seen by Provider: March 16, 2018 Time Seen by Provider: 20:08 Narrative Accepted transfer of care from Dr. Dodd GENERAL: Mildly ill-appearing female in no respiratory distress with mild tremulousness SKIN: Warm and dry. HEAD: Normocephalic. EYES: No scleral icterus. No injection or drainage. NECK: Supple, trachea midline. No JVD or lymphadenopathy. CARDIOVASCULAR: Increased regular rate and rhythm without murmurs, gallops, or rubs. RESPIRATORY: Breath sounds equal bilaterally. No accessory muscle use. GASTROINTESTINAL: Abdomen soft, non-tender, nondistended. MUSCULOSKELETAL: No cyanosis, or edema. BACK: Nontender without obvious deformity. No CVA tenderness. Data Data Last Documented VS Vital Signs Date Time Temp Pulse Resp B/P (MAP) Pulse Ox O2 Delivery O2 Flow Rate FiO2 03/16/18 22:23 82 20 137/89 (105) 98 Room Air 03/16/18 18:20 98.1 Orders Orders Urinalysis - C+S If Indicated (03/16/18 18:24) Complete Blood Count With Diff (03/16/18 18:50) Comprehensive Metabolic Panel (03/16/18 18:50) Ecg Monitoring (03/16/18 18:50) Iv Access Insert/Monitor (03/16/18 18:50) Sodium Chlor 0.9% 1000 Ml Inj (Ns 1000 M (03/16/18 18:50) Lipase (03/16/18 18:50) Prothrombin Time / Inr (Pt) (03/16/18 18:50) Act Partial Throm Time (Ptt) (03/16/18 18:50) Sodium Chloride 0.9% Flush (Ns Flush) (03/16/18 19:00) Ondansetron Odt (Zofran Odt) (03/16/18 19:00) Lactic Acid (03/16/18 19:52) Sodium Chlor 0.9% 1000 Ml Inj (Ns 1000 M (03/16/18 20:00) Potassium Chloride (Kcl) (03/16/18 20:00) Lorazepam Inj (Ativan Inj) (03/16/18 20:30) Ammonia (03/16/18 20:19) Alcohol (Ethanol) (03/16/18 18:55) Magnesium (Mg) (03/16/18 18:55) Alcohol Withdrawal Asmt-Ciwa ONCE (03/16/18 21:39) Flumazenil Inj (Romazicon Inj) (03/16/18 21:45) Lorazepam (Ativan) (03/16/18 21:45) Lorazepam Inj (Ativan Inj) (03/16/18 21:45) Lorazepam (Ativan) (03/16/18 21:45) Lorazepam Inj (Ativan Inj) (03/16/18 21:45) Lorazepam Inj (Ativan Inj) (03/16/18 21:45) Lorazepam Inj (Ativan Inj) (03/16/18 21:45) Lorazepam Inj (Ativan Inj) (03/16/18 21:45) Blood Gas Venous Ph (03/16/18 21:39) Lactic Acid (03/16/18 22:10) Admit Order (Ed Use Only) (03/16/18 ) Back Joiner / Telemetry [id number] (03/16/18 23:05) Diet Heart Healthy (03/17/18 Breakfast) Activity Oob With Assistance (03/16/18 23:05) Notify Dr: Other (03/16/18 23:05) Labs Laboratory Tests Test 03/16/18 18:30 03/16/18 18:55 03/16/18 20:10 03/16/18 20:30 Urine Color YELLOW Urine Turbidity CLEAR Urine pH 7.0 Urine Specific [place] 1.015 Urine Protein 30 mg/dL Urine Glucose (UA) NEG mg/dL Urine Ketones 40 mg/dL Urine Occult Blood NEG Urine Nitrite NEG Urine Bilirubin NEG Urine Urobilinogen 0.2 MG/DL Urine Leukocyte Esterase NEG Urine RBC 0-3 /hpf Urine WBC 0-2 /hpf Urine Squamous Epithelial Cells 0-5 /hpf Urine Bacteria NONE /hpf Microscopic Urinalysis Comment CULT NOT INDICATED White Blood Count 2.8 TH/MM3 Red Blood Count 3.44 MIL/MM3 Hemoglobin 12.1 GM/DL Hematocrit 35.0 % Mean Corpuscular Volume 101.7 FL Mean Corpuscular Hemoglobin 35.1 PG Mean Corpuscular Hemoglobin Concent 34.5 % Red Cell Distribution Width 14.3 % Platelet Count 184 TH/MM3 Mean Platelet Volume 7.0 FL Neutrophils (%) (Auto) 70.9 % Lymphocytes (%) (Auto) 18.6 % Monocytes (%) (Auto) 9.5 % Eosinophils (%) (Auto) 0.1 % Basophils (%) (Auto) 0.9 % Neutrophils # (Auto) 2.0 TH/MM3 Lymphocytes # (Auto) 0.5 TH/MM3 Monocytes # (Auto) 0.3 TH/MM3 Eosinophils # (Auto) 0.0 TH/MM3 Basophils # (Auto) 0.0 TH/MM3 CBC Comment DIFF FINAL Differential Comment Prothrombin Time 10.6 SEC Prothromb Time International Ratio 1.0 RATIO Activated Partial Thromboplast Time 22.8 SEC Blood Urea Nitrogen 10 MG/DL Creatinine 0.76 MG/DL Random Glucose 103 MG/DL Total Protein 8.1 GM/DL Albumin 4.1 GM/DL Calcium Level 8.9 MG/DL Magnesium Level 1.6 MG/DL Alkaline Phosphatase 83 U/L Aspartate Amino Transf (AST/SGOT) 53 U/L Alanine Aminotransferase (ALT/SGPT) 31 U/L Total Bilirubin 0.4 MG/DL Sodium Level 138 MEQ/L Potassium Level 3.4 MEQ/L Chloride Level 104 MEQ/L Carbon Dioxide Level 17.5 MEQ/L Anion Gap 17 MEQ/L Estimat Glomerular Filtration Rate 79 ML/MIN Lipase 155 U/L Ethyl Alcohol Level 25 MG/DL Lactic Acid Level 2.1 mmol/L Ammonia 12 MCMOL/L Test 03/16/18 21:58 03/16/18 22:00 Venous Blood pH 7.46 Lactic Acid Level 1.3 mmol/L [facility] Medical Record Reviewed: Yes Supervised Visit with NATALIE: No Interpretation(s) CBC & BMP Diagram 03/16/18 18:55 Total Protein 8.1, Albumin 4.1, Calcium Level 8.9, Magnesium Level 1.6, Alkaline Phosphatase 83, Aspartate Amino Transf (AST/SGOT) 53 H, Alanine Aminotransferase (ALT/SGPT) 31, Total Bilirubin 0.4 Lactic acid 2.1 on repeat 1.3 Venous pH 7.46 Serum alcohol 25 Differential Diagnosis Accepted transfer of care from Dr. Dodd; please refer to her dictation Narrative Course Accepted transfer of care from Dr. Dodd; follow up labs, CT, and disposition Mildly ill-appearing female with tachycardia and tremulousness with recent alcohol binge on Saturday no alcohol Saturday and did drink small amount of alcohol reportedly this evening patient reports she has a history of alcoholism and is typically a binge drinker. Patient has had nausea generalized weakness vomiting and states that she is concerned that this may be a side effect of her chemotherapy that she is receiving via her oncologist Dr. Inman in view of her history of metastatic breast cancer. Patient's had no fever or chills. Patient states she runs a low white cell count which is typical for her. Patient does not report any increased bruising hemoptysis hematemesis coffee- ground emesis melena hematochezia hematuria gum bleeding or epistaxis. Patient given IV fluid hydration; patient given IV Ativan for tremulousness and agitation as she is noted to have tachycardia and hypertension and concern for early alcohol withdrawal. Patient also has probable alcohol-related gastritis. Patient is noted to have leukopenia stable hemoglobin and platelet count. Patient's case discussed with on-call medicine for observation admission. Physician Communication Physician Communication discussed mina Shaffer Diagnosis Primary Impression: Nausea and vomiting Additional Impressions: Alcohol abuse with intoxication Breast cancer metastasized to multiple sites Gastritis Drug-induced leukopenia Admitting Information Admitting Physician Requests: Observation Christie Leger MD March 16, 2018 20:19
[2018-03-16] MEDS ORDERED: LORazepam 2 MG/ML VIAL IV PUSH ONE ×2 (20:30→21:45)
[2018-03-16 20:32] LABS: MAGNESIUM 1.6 MG/DL (1.5-2.5)
[2018-03-16] MEDS ORDERED: LORazepam 1 MG TAB PO PRN (21:45)
[2018-03-16] MEDS ORDERED: LORazepam 2 MG/ML VIAL IV PUSH PRN ×4 (21:45)
[2018-03-16] MEDS ORDERED: LORazepam 2 MG TAB PO PRN (21:45)
[2018-03-16] MEDS ORDERED: FLUMAZENIL 0.5 MG/5 ML VIAL IV PUSH PRN (21:45)
[2018-03-16 22:23] VITALS: BP 137/89; PULSE 82; RESP 20; O2SAT 98
[2018-03-16] MEDS ORDERED: ACETAMINOPHEN 325 MG TAB PO PRN (23:15)
[2018-03-16] MEDS ORDERED: PROCHLORPERAZINE INJ 10 MG/2 ML VIAL IV PUSH PRN (23:15)
[2018-03-17] VITALS (10 sets, daily range): BP systolic 127–158; BP diastolic 77–96; PULSE 71–107; RESP 18–20; TEMP 98.1–99.3; O2SAT 99
[2018-03-17] MEDS: FAMOTIDINE 20 MG TAB PO SCH ×3 (00:33→22:12)
[2018-03-17] MEDS: SODIUM CHLOR 0.9% 1000 ML INJ 1,000 ML IV SCH ×2 (00:44→10:44)
[2018-03-17 06:44] LABS: AUTOMATED NEUTROPHIL # 0.7 TH/MM3 (1.8-7.7); BASOPHIL % 0.9 % (0.0-2.0); EOSINOPHIL % 0.2 % (0.0-4.0); HEMATOCRIT 31.5 % (35.0-46.0); HEMOGLOBIN 10.5 GM/DL (11.6-15.3); LYMPH % 48.1 % (9.0-44.0); MEAN CORPUSCULAR HEMOGLOBIN 34.4 PG (27.0-34.0); MEAN CORPUSCULAR HGB CONC 33.4 % (32.0-36.0); MEAN PLATELET VOLUME 6.7 FL (7.0-11.0); MONO % 12.9 % (0.0-8.0); MONOCYTE # 0.2 TH/MM3 (0-0.9); NEUT % 37.9 % (16.0-70.0); PLATELET COUNT 136 TH/MM3 (150-450); RED BLOOD COUNT 3.06 MIL/MM3 (4.00-5.30); RED CELL DISTRIBUTION WIDTH 13.4 % (11.6-17.2); WHITE BLOOD COUNT 1.9 TH/MM3 (4.0-11.0)
[2018-03-17 07:20] LABS: ALBUMIN 3.2 GM/DL (3.4-5.0); BICARBONATE 23.6 MEQ/L (21.0-32.0); CALCIUM 7.4 MG/DL (8.5-10.1); CALCIUM-PROTEIN CORRECTED 7.8 MG/DL (8.5-10.1); CREATININE 0.61 MG/DL (0.50-1.00); TOTAL BILIRUBIN ADULT 0.4 MG/DL (0.2-1.0); TOTAL PROTEIN 6.4 GM/DL (6.4-8.2)
[2018-03-17 07:22] LABS: BANDS 1 % (0-6); BASOPHILS 1 % (0-2); BLASTS 1 % (0-0); LYMPHOCYTES 64 % (9-44); MONOCYTES 6 % (0-8); NEUTROPHIL # MANUAL DIFF 0.5 TH/MM3 (1.8-7.7); POLYS (SEG NEUTROPHILS) 27 % (16-70)
[2018-03-17 07:24] LABS: OVALOCYTES 1+ (NORMAL)
[2018-03-17] MEDS: MULTIVITAMINS/MINERALS THERAPEUTIC TAB PO SCH (07:50)
[2018-03-17] MEDS: THIAMINE HCL 100 MG TAB PO SCH (07:50)
[2018-03-17] MEDS: VENLAFAXINE HCL XR 75 MG CAP PO SCH (07:50)
[2018-03-17] MEDS: LISINOPRIL 10 MG TAB PO SCH (07:50)
[2018-03-17] MEDS: FOLIC ACID 1 MG TAB PO SCH (07:51)
[2018-03-17] MEDS: SODIUM CHLORIDE 0.9% FLUSH 10 ML FLUSH IV FLUSH SCH ×2 (07:51→22:15)
[2018-03-17] MEDS ORDERED: PALBOCICLIB PO SCH (09:00)
--- NOTE | 2018-03-17 09:45 | HHI.HP ---
[facility] Ting Logan MD Admission Diagnosis alcohol withdrawal; leukopenia; breast ca Diagnoses: (1) Alcohol abuse with intoxication (2) Nausea and vomiting Chief Complaint: Vomiting Travel History International Travel<30 Days: No Contact w/Intl Traveler <30 Da: No Traveled to Known Affected Are: No Sepsis Criteria SIRS Criteria (2 or more): Heart rate over 90 History of Present Illness This is a 52-year-old female patient with a known medical history of metastatic breast cancer with multiple recurrences, hypertension and alcohol abuse who presented to the ED with complaints of vomiting. Patient states that since last evening around 5 PM she began to vomit and was unable to tolerate any food by mouth. Patient states that she did drink heavily on Saturday night as well as yesterday afternoon. She denies any recent fever, chills, cough, shortness of breath, abdominal pain, diarrhea or dysuria. Patient does admit to a recent UTI a month ago and antibiotics and symptoms resolved. Patient does admit to history of panic attacks. Denies any history of alcohol withdrawal, seizures or DTs. Patient follows with Dr. Inman, oncology, was last seen 2 weeks ago and follows with him monthly. Patient is on Ibrance, and started this cycle on Saturday with subsequent vomiting as well as associated alcohol consumption. Patient was initially diagnosed with metastatic breast cancer in 2005 with multiple recurrences and metastases to the sternum and spine. Patient does admit to frequent GERD symptoms as well as frequent vomiting. PCP is Dr. Logan. Review of Systems Constitutional: DENIES: Fever, Chills Eyes: DENIES: Diplopia Respiratory: DENIES: Cough, Sputum production, Shortness of breath Cardiovascular: DENIES: Chest pain, Palpitations, Syncope, Lower Extremity Edema Gastrointestinal: COMPLAINS OF: Nausea, Vomiting, DENIES: Abdominal pain, Black stools, Bloody stools, Constipation, Diarrhea Musculoskeletal: DENIES: Joint pain Immunologic/allergic: DENIES: Eczema Neurologic: DENIES: Abnormal gait Psychiatric: COMPLAINS OF: Anxiety Except as stated in HPI: all other systems reviewed are Neg Past Family Social History Past Medical History Anxiety and depression Hypertension History of TIA History of metastatic breast cancer to the sternum and spine. Alcohol abuse. Past Surgical History Bilateral breast mastectomy. Breast augmentation. Reported Medications Active Reported Lisinopril 10 Mg Tab 10 Mg PO DAILY Venlafaxine ER 24 HR (Venlafaxine HCl) 75 Mg Cap 75 Mg PO DAILY Ibrance (Palbociclib) 75 Mg Capsule 1 Tab PO DAILY Allergies: Coded Allergies: azithromycin (Unverified Allergy, Severe, UNKNOWN, 03/16/18) erythromycin base (Unverified Allergy, Severe, UNKNOWN, 03/16/18) morphine (Unverified Allergy, Severe, UNKNOWN, 03/16/18) penicillin G (Unverified Allergy, Severe, UNKNOWN, 03/16/18) Uncoded Allergies: MRI CONTRAST (Allergy, Severe, Anaphylaxis, 12/28/17) Active Ordered Medications Current Medications Medications (Trade) Dose Ordered Sig/Velia Route Start Time Stop Time Status Last Admin (Romazicon Inj) 0.2 mg Q1M PRN IV PUSH 03/16/18 21:45 (Ativan) 1 mg Q4H PRN PO 03/16/18 21:45 (Ativan Inj) 1 mg Q4H PRN IV PUSH 03/16/18 21:45 03/17/18 00:51 (Ativan) 2 mg Q2H PRN PO 03/16/18 21:45 (Ativan Inj) 2 mg Q2H PRN IV PUSH 03/16/18 21:45 (Ativan Inj) 2 mg Q1H PRN IV PUSH 03/16/18 21:45 (Ativan Inj) 2 mg Q15M PRN IV PUSH 03/16/18 21:45 (NS Flush) 2 ml UNSCH PRN IV FLUSH 03/16/18 23:15 (NS Flush) 2 ml BID IV FLUSH 03/17/18 09:00 Sodium Chloride 1,000 ml @ 100 mls/hr Q10H IV 03/16/18 23:10 03/17/18 10:44 (Folate) 1 mg DAILY PO 03/17/18 09:00 03/22/18 08:59 03/17/18 07:51 (Vitamin B1) 100 mg DAILY PO 03/17/18 09:00 03/17/18 07:50 (Theragran M Tab) 1 tab DAILY PO 03/17/18 09:00 03/22/18 08:59 03/17/18 07:50 (Pepcid) 20 mg BID PO 03/16/18 23:15 03/17/18 07:50 (Tylenol) 650 mg Q4H PRN PO 03/16/18 23:15 (Prinivil) 10 mg DAILY PO 03/17/18 09:00 03/17/18 07:50 (Effexor Xr) 75 mg DAILY PO 03/17/18 09:00 03/17/18 07:50 Patient Own Medication PT OWN MED: (Palbociclib (Ibrance)CA... DAILY PO 03/17/18 09:00 Future Hold (Compazine Inj) 5 mg Q4H PRN IV PUSH 03/16/18 23:15 Family History Maternal medical history significant for breast cancer Social History Patient denies current tobacco abuse. Admits to alcohol abuse, does admit to binge drinking on Saturday night. Denies any illicit drug use. Physical Exam Vital Signs Vital Signs Date Time Temp Pulse Resp B/P (MAP) Pulse Ox O2 Delivery O2 Flow Rate FiO2 03/17/18 08:34 98.6 87 20 139/84 (102) 99 03/17/18 04:00 98.6 93 20 153/96 (115) 99 03/17/18 00:40 105 03/17/18 00:35 03/17/18 00:00 99.3 87 20 127/77 (94) 99 03/17/18 00:00 98.7 95 18 137/83 (101) 99 Room Air 03/16/18 22:23 82 20 137/89 (105) 98 Room Air 03/16/18 20:15 100 20 146/95 (112) 98 Room Air 03/16/18 18:20 98.1 109 18 176/102 (126) 98 Physical Exam GENERAL: Well-developed, well-nourished patient in NAD. SKIN: Warm and dry. No rash. HEAD: Normocephalic. Atraumatic. EYES: Pupils equal and round. No scleral icterus. No injection or drainage. ENT: No nasal bleeding or discharge. Mucous membranes pink and moist. NECK: Supple. Trachea midline. CARDIOVASCULAR: Regular rate and rhythm. S1, S2 noted. No murmur appreciated. RESPIRATORY: No accessory muscle use. Clear to auscultation. Breath sounds equal bilaterally. GASTROINTESTINAL: Abdomen soft, non-tender, nondistended. Normoactive bowel sounds x4. MUSCULOSKELETAL: No obvious deformities. Extremities without clubbing, cyanosis , or edema. NEUROLOGICAL: Awake and alert. No obvious cranial nerve deficits. Motor grossly within normal limits. 5/5 muscle strength in bilateral upper and lower extremities. Normal speech. PSYCHIATRIC: Appropriate mood and affect; insight and judgment normal. Laboratory Laboratory Tests Test 03/16/18 18:30 03/16/18 18:55 03/16/18 20:10 03/16/18 20:30 Urine Color YELLOW Urine Turbidity CLEAR Urine pH 7.0 Urine Specific [place] 1.015 Urine Protein 30 Urine Glucose (UA) NEG Urine Ketones 40 Urine Occult Blood NEG Urine Nitrite NEG Urine Bilirubin NEG Urine Urobilinogen 0.2 Urine Leukocyte Esterase NEG Urine RBC 0-3 Urine WBC 0-2 Urine Squamous Epithelial Cells 0-5 Urine Bacteria NONE Microscopic Urinalysis Comment CULT NOT INDICATED White Blood Count 2.8 Red Blood Count 3.44 Hemoglobin 12.1 Hematocrit 35.0 Mean Corpuscular Volume 101.7 Mean Corpuscular Hemoglobin 35.1 Mean Corpuscular Hemoglobin Concent 34.5 Red Cell Distribution Width 14.3 Platelet Count 184 Mean Platelet Volume 7.0 Neutrophils (%) (Auto) 70.9 Lymphocytes (%) (Auto) 18.6 Monocytes (%) (Auto) 9.5 Eosinophils (%) (Auto) 0.1 Basophils (%) (Auto) 0.9 Neutrophils # (Auto) 2.0 Lymphocytes # (Auto) 0.5 Monocytes # (Auto) 0.3 Eosinophils # (Auto) 0.0 Basophils # (Auto) 0.0 CBC Comment DIFF FINAL Differential Comment Prothrombin Time 10.6 Prothromb Time International Ratio 1.0 Activated Partial Thromboplast Time 22.8 Blood Urea Nitrogen 10 Creatinine 0.76 Random Glucose 103 Total Protein 8.1 Albumin 4.1 Calcium Level 8.9 Magnesium Level 1.6 Alkaline Phosphatase 83 Aspartate Amino Transf (AST/SGOT) 53 Alanine Aminotransferase (ALT/SGPT) 31 Total Bilirubin 0.4 Sodium Level 138 Potassium Level 3.4 Chloride Level 104 Carbon Dioxide Level 17.5 Anion Gap 17 Estimat Glomerular Filtration Rate 79 Lipase 155 Ethyl Alcohol Level 25 Lactic Acid Level 2.1 Ammonia 12 Test 03/16/18 21:58 03/16/18 22:00 03/17/18 06:00 Venous Blood pH 7.46 Lactic Acid Level 1.3 White Blood Count 1.9 Red Blood Count 3.06 Hemoglobin 10.5 Hematocrit 31.5 Mean Corpuscular Volume 103.0 Mean Corpuscular Hemoglobin 34.4 Mean Corpuscular Hemoglobin Concent 33.4 Red Cell Distribution Width 13.4 Platelet Count 136 Mean Platelet Volume 6.7 Neutrophils (%) (Auto) 37.9 Lymphocytes (%) (Auto) 48.1 Monocytes (%) (Auto) 12.9 Eosinophils (%) (Auto) 0.2 Basophils (%) (Auto) 0.9 Neutrophils # (Auto) 0.7 Lymphocytes # (Auto) 1.0 Monocytes # (Auto) 0.2 Eosinophils # (Auto) 0.0 Basophils # (Auto) 0.0 CBC Comment AUTO DIFF Differential Total Cells Counted 100 Neutrophils % (Manual) 27 Band Neutrophils % 1 Lymphocytes % 64 Monocytes % 6 Basophils % 1 Neutrophils # (Manual) 0.5 Differential Comment FINAL DIFF MANUAL Blastocytes 1 Platelet Estimate LOW Platelet Morphology Comment NORMAL Ovalocytes 1+ Blood Urea Nitrogen 8 Creatinine 0.61 Random Glucose 75 Total Protein 6.4 Albumin 3.2 Calcium Level 7.4 Alkaline Phosphatase 64 Aspartate Amino Transf (AST/SGOT) 35 Alanine Aminotransferase (ALT/SGPT) 26 Total Bilirubin 0.4 Sodium Level 139 Potassium Level 3.2 Chloride Level 107 Carbon Dioxide Level 23.6 Anion Gap 8 Estimat Glomerular Filtration Rate 102 Protein Corrected Calcium 7.8 Result Diagram: 03/17/18 0600 03/17/18 0600 Septic Shock Reassessment Septic shock perfusion: reassessment completed Caprini VTE Risk Assessment Caprini VTE Risk Assessment: No/Low Risk (score <= 1) Caprini Risk Assessment Model Point Value = 1 Point Value = 2 Point Value = 3 Point Value = 5 Age 41-60 Minor surgery BMI > 25 kg/m2 Swollen legs Varicose veins or History of unexplained or recurrent spontaneous Oral contraceptives or hormone replacement Sepsis (< 1 month) Serious lung disease, including pneumonia (< 1 month) Abnormal pulmonary function Acute myocardial infarction Congestive heart failure (< 1 month) History of inflammatory bowel disease Medical patient at bed rest Age 61-74 Arthroscopic surgery Major open surgery (> 45 min) Laparoscopic surgery (> 45 min) Malignancy Confined to bed (> 72 hours) Immobilizing plaster cast Central venous access Age >= 75 History of VTE Family history of VTE Factor V Leiden Prothrombin [id number] Lupus anticoagulant Anticardiolipin antibodies Elevated serum homocysteine Heparin-induced thrombocytopenia Other congenital or acquired thrombophilia Stroke (< 1 month) Elective arthroplasty Hip, pelvis, or leg fracture Acute spinal cord injury (< 1 month) Prophylaxis Regimen Total Risk Factor Score Risk Level Prophylaxis Regimen 0-1 Low Early ambulation 2 Moderate Order ONE of the following: *Sequential Compression Device (SCD) *Heparin 5000 units SQ BID 3-4 Higher Order ONE of the following medications: *Heparin 5000 units SQ TID *Enoxaparin/Lovenox 40 mg SQ daily (WT < 150 kg, CrCl > 30 mL/min) *Enoxaparin/Lovenox 30 mg SQ daily (WT < 150 kg, CrCl > 10-29 mL/min) *Enoxaparin/Lovenox 30 mg SQ BID (WT < 150 kg, CrCl > 30 mL/min) AND/OR *Sequential Compression Device (SCD) 5 or more Highest Order ONE of the following medications: *Heparin 5000 units SQ TID (Preferred with Epidurals) *Enoxaparin/Lovenox 40 mg SQ daily (WT < 150 kg, CrCl > 30 mL/min) *Enoxaparin/Lovenox 30 mg SQ daily (WT < 150 kg, CrCl > 10-29 mL/min) *Enoxaparin/Lovenox 30 mg SQ BID (WT < 150 kg, CrCl > 30 mL/min) AND *Sequential Compression Device (SCD) Assessment and Plan Problem List: (1) Nausea and vomiting ICD Code: R11.2 - Nausea with vomiting, unspecified Status: Acute (2) Alcohol abuse with intoxication ICD Code: F10.129 - Alcohol abuse with intoxication, unspecified (3) Breast cancer metastasized to multiple sites ICD Code: C50.919 - Malignant neoplasm of unspecified site of unspecified female breast Assessment and Plan This is a 52-year-old female patient with a known medical history of metastatic breast cancer with multiple recurrences, hypertension and alcohol abuse who presented to the ED with complaints of vomiting. Nausea and vomiting, resolving Chronic alcohol abuse with positive alcohol level, 25 - Patient was given Zofran which has improved her nausea. Was given 2 L NS bolus as well in ED. Diet as tolerated. - Will continue IV fluids. Mild hypokalemia, was given potassium supplement in ED. Will continue to monitor. - Initially a CT scan of the abdomen was ordered, although patient states she just had an abdominal CT scan with her oncologist last week. - Order placed to obtain records from Dr. Inman as well as consult placed to him. Appreciate input and recommendations. - Encouraged cessation of alcohol especially with medications. Placed on CIWA protocol. Monitor for any withdrawals. Monitor for any seizures. - Placed on folate, multivitamin and thiamine. History of breast cancer with metastasis to multiple sites including sternum and spine - Continue on home Inbrance. - Patient is neutropenic, place on precautions. No sxs of infection. No fever. White blood cell 2.8 upon presentation, today 1.9. Neutrophils 0.5. - Consult placed to Dr. Inman, rehab office coordinator/oncologist, appreciate input and recommendations. Hypertension, chronic: Continue home medications. Monitor BP trends. DVT Prophylaxis: SCDs. Mai Cardona March 17, 2018 09:45
[2018-03-17] MEDS ORDERED: POTASSIUM CHLORIDE 10 MEQ CONTROLLED RELEASE TAB PO ONE (10:30)
--- NOTE | 2018-03-17 18:13 | PD.CONS ---
History of Present Illness Service Hematology/oncology Consult Requested By Hospitalist service. Reason for Consult Metastatic breast carcinoma. Cytopenias secondary to myelosuppression. Primary Care Physician Ting Logan MD Diagnoses: History of Present Illness Chief complaint: Uncontrolled nausea and vomiting. Severe anxiety. History of presenting illness: Ms. 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 She tells me she had bilateral lymph node involvement at the time of diagnosis. She underwent bilateral mastectomy with sentinel lymph node biopsy followed by adjuvant chemotherapy and then adjuvant endocrine therapy. 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 In 2008 she had additional metastatic disease identified within the ribs and in the spine. She underwent palliative radiation and was subsequently initiated on palliative endocrine therapy; she reports having been on various lines of treatment, but 2 years ago she was initiated on combination of Ibrance with Faslodex for progressive bony metastatic disease. Over the past 2 years she has required dose reductions of Vyvanse Ibrance due to toxicities which include peeling of the skin on the palms, diarrhea, nausea and vomiting as well as neutropenia. She is presently on a dose of 75 mg daily. The patient reports having had a severe panic attack and that triggered an alcohol binge. She reports drinking a large bottle of vodka and following that had uncontrolled nausea and vomiting. She also had abdominal cramps and diarrhea. She presented to [facility] and was evaluated in the emergency department, she underwent blood work which revealed pancytopenia and was assessed to be dehydrated. She was initiated on IV fluid hydration and supportive measures including IV antiemetic therapy and anxiolytics for management of her panic attacks. Her symptoms anxiety, nausea/vomiting have resolved with the supportive care. The hematology/oncology service has been asked to see her given her neutropenia and history of metastatic breast carcinoma. Review of Systems Constitutional: COMPLAINS OF: Fatigue, Dizziness, DENIES: Diaphoretic episodes , Fever, Weight gain, Weight loss, Chills, Change in appetite, Night Sweats Endocrine: DENIES: Abnorml menstrual pattern, Heat/cold intolerance, Polydipsia , Polyuria, Polyphagia Eyes: DENIES: Blurred vision, Diplopia, Eye inflammation, Eye pain, Vision loss , Photosensitivity, Double Vision Ears, nose, mouth, throat: DENIES: Tinnitus, Hearing loss, Vertigo, Nasal discharge, Oral lesions, Throat pain, Hoarseness, Ear Pain, Running Nose, Epistaxis, Sinus Pain, Toothache, Odynophagia Respiratory: DENIES: Apneas, Cough, Snoring, Wheezing, Hemoptysis, Sputum production, Shortness of breath Cardiovascular: COMPLAINS OF: Chest pain, Palpitations, Dyspnea on Exertion, DENIES: Syncope, PND, Lower Extremity Edema, Orthopnea, Claudication Gastrointestinal: COMPLAINS OF: Abdominal pain, Diarrhea, Nausea, Vomiting, Anorexia, DENIES: Black stools, Bloody stools, Constipation, Difficulty Swallowing Genitourinary: DENIES: Abnormal vaginal bleeding, Dysmenorrhea, Dyspareunia, Sexual dysfunction, Urinary frequency, Urinary incontinence, Urgency, Hematuria , Dysuria, Nocturia, Vaginal discharge Musculoskeletal: COMPLAINS OF: Muscle aches, Stiffness, Back pain, DENIES: Joint pain, Joint Swelling, Neck pain Integumentary: DENIES: Abnormal pigmentation, Pruritus, Rash, Nail changes, Breast masses, Breast skin changes, Nipple discharge Hematologic/lymphatic: DENIES: Bruising, Lymphadenopathy Immunologic/allergic: DENIES: Eczema, Urticaria Neurologic: DENIES: Abnormal gait, Headache, Localized weakness, Paresthesias, Seizures, Speech Problems, Tremor, Poor Balance Psychiatric: COMPLAINS OF: Anxiety, Mood changes, Depression, Agitation, DENIES : Confusion, Hallucinations, Suicidal Ideation, Homicidal Ideation, Delusions Except as stated in HPI: all other systems reviewed are Neg Past Family Social History Allergies: Coded Allergies: azithromycin (Unverified Allergy, Severe, UNKNOWN, 03/16/18) erythromycin base (Unverified Allergy, Severe, UNKNOWN, 03/16/18) morphine (Unverified Allergy, Severe, UNKNOWN, 03/16/18) penicillin G (Unverified Allergy, Severe, UNKNOWN, 03/16/18) Uncoded Allergies: MRI CONTRAST (Allergy, Severe, Anaphylaxis, 12/28/17) Past Medical History Metastatic breast carcinoma Anxiety Hypertension Alcohol abuse Recurrent bronchitis Past Surgical History Bilateral modified radical mastectomy; 2004. Bone biopsy Active Ordered Medications Normal saline 100 cc/h Tylenol 650 mg p.o. every 4 hours needed for temperature greater than 100.4F Pepcid 20 mg p.o. twice daily Folic acid 1 mg p.o. daily Lisinopril 10 mg p.o. daily Lorazepam 1 mg p.o. every 4 hours needed for Sheldon scale 8-10. Lorazepam 2 mg p.o. every 2 hours need for Sheldon scale 11-14. Multivitamin daily. Potassium chloride 40 mg p.o. daily Promethazine 5 mg IV every 4 hours Thiamine 100 mg p.o. daily Venlafaxine 75 mg p.o. daily Family History Mother: Postmenopausal breast cancer Sister: Postmenopausal breast cancer. Social History Lives with her parents. Originally from [place]. Currently disabled. Heavy alcohol drinker. Physical Exam Vital Signs Vital Signs Date Time Temp Pulse Resp B/P (MAP) Pulse Ox O2 Delivery O2 Flow Rate FiO2 03/17/18 16:00 98.2 85 20 150/78 (102) 99 03/17/18 11:25 98.1 85 20 155/79 (104) 99 03/17/18 08:34 98.6 87 20 139/84 (102) 99 03/17/18 07:56 96 03/17/18 04:00 98.6 93 20 153/96 (115) 99 03/17/18 00:40 105 03/17/18 00:35 03/17/18 00:00 99.3 87 20 127/77 (94) 99 03/17/18 00:00 98.7 95 18 137/83 (101) 99 Room Air 03/16/18 22:23 82 20 137/89 (105) 98 Room Air 03/16/18 20:15 100 20 146/95 (112) 98 Room Air 03/16/18 18:20 98.1 109 18 176/102 (126) 98 Physical Exam GENERAL: Ms. Coates is a middle-aged female, she is of medium height and thin build, she sitting up in bed, she appears to be no acute distress. SKIN: No rashes, ecchymoses or lesions. Cool and dry. HEAD: Atraumatic. Normocephalic. No temporal or scalp tenderness. EYES: Pupils equal round and reactive. Extraocular motions intact. No scleral icterus. No injection or drainage. ENT: Nose without bleeding, purulent drainage or septal hematoma. Throat without erythema, tonsillar hypertrophy or exudate. Uvula midline. Airway patent. NECK: Trachea midline. No JVD or lymphadenopathy. Supple, nontender, no meningeal signs. CARDIOVASCULAR: Regular rate and rhythm without murmurs, gallops, or rubs. RESPIRATORY: Clear to auscultation. Breath sounds equal bilaterally. No wheezes , rales, or rhonchi. GASTROINTESTINAL: Abdomen soft, non-tender, nondistended. No hepato-splenomegaly , or palpable masses. No guarding. MUSCULOSKELETAL: Extremities without clubbing, cyanosis, or edema. No joint tenderness, effusion, or edema noted. No calf tenderness. Negative Homans sign bilaterally. NEUROLOGICAL: Awake and alert. Cranial nerves II through XII intact. Motor and sensory grossly within normal limits. Five out of 5 muscle strength in all muscle groups. Normal speech. Laboratory Laboratory Tests Test 03/16/18 18:30 03/16/18 18:55 03/16/18 20:10 03/16/18 20:30 Urine Color YELLOW Urine Turbidity CLEAR Urine pH 7.0 Urine Specific [place] 1.015 Urine Protein 30 Urine Glucose (UA) NEG Urine Ketones 40 Urine Occult Blood NEG Urine Nitrite NEG Urine Bilirubin NEG Urine Urobilinogen 0.2 Urine Leukocyte Esterase NEG Urine RBC 0-3 Urine WBC 0-2 Urine Squamous Epithelial Cells 0-5 Urine Bacteria NONE Microscopic Urinalysis Comment CULT NOT INDICATED White Blood Count 2.8 Red Blood Count 3.44 Hemoglobin 12.1 Hematocrit 35.0 Mean Corpuscular Volume 101.7 Mean Corpuscular Hemoglobin 35.1 Mean Corpuscular Hemoglobin Concent 34.5 Red Cell Distribution Width 14.3 Platelet Count 184 Mean Platelet Volume 7.0 Neutrophils (%) (Auto) 70.9 Lymphocytes (%) (Auto) 18.6 Monocytes (%) (Auto) 9.5 Eosinophils (%) (Auto) 0.1 Basophils (%) (Auto) 0.9 Neutrophils # (Auto) 2.0 Lymphocytes # (Auto) 0.5 Monocytes # (Auto) 0.3 Eosinophils # (Auto) 0.0 Basophils # (Auto) 0.0 CBC Comment DIFF FINAL Differential Comment Prothrombin Time 10.6 Prothromb Time International Ratio 1.0 Activated Partial Thromboplast Time 22.8 Blood Urea Nitrogen 10 Creatinine 0.76 Random Glucose 103 Total Protein 8.1 Albumin 4.1 Calcium Level 8.9 Magnesium Level 1.6 Alkaline Phosphatase 83 Aspartate Amino Transf (AST/SGOT) 53 Alanine Aminotransferase (ALT/SGPT) 31 Total Bilirubin 0.4 Sodium Level 138 Potassium Level 3.4 Chloride Level 104 Carbon Dioxide Level 17.5 Anion Gap 17 Estimat Glomerular Filtration Rate 79 Lipase 155 Ethyl Alcohol Level 25 Lactic Acid Level 2.1 Ammonia 12 Test 03/16/18 21:58 03/16/18 22:00 03/17/18 06:00 Venous Blood pH 7.46 Lactic Acid Level 1.3 White Blood Count 1.9 Red Blood Count 3.06 Hemoglobin 10.5 Hematocrit 31.5 Mean Corpuscular Volume 103.0 Mean Corpuscular Hemoglobin 34.4 Mean Corpuscular Hemoglobin Concent 33.4 Red Cell Distribution Width 13.4 Platelet Count 136 Mean Platelet Volume 6.7 Neutrophils (%) (Auto) 37.9 Lymphocytes (%) (Auto) 48.1 Monocytes (%) (Auto) 12.9 Eosinophils (%) (Auto) 0.2 Basophils (%) (Auto) 0.9 Neutrophils # (Auto) 0.7 Lymphocytes # (Auto) 1.0 Monocytes # (Auto) 0.2 Eosinophils # (Auto) 0.0 Basophils # (Auto) 0.0 CBC Comment AUTO DIFF Differential Total Cells Counted 100 Neutrophils % (Manual) 27 Band Neutrophils % 1 Lymphocytes % 64 Monocytes % 6 Basophils % 1 Neutrophils # (Manual) 0.5 Differential Comment FINAL DIFF MANUAL Blastocytes 1 Platelet Estimate LOW Platelet Morphology Comment NORMAL Ovalocytes 1+ Blood Urea Nitrogen 8 Creatinine 0.61 Random Glucose 75 Total Protein 6.4 Albumin 3.2 Calcium Level 7.4 Alkaline Phosphatase 64 Aspartate Amino Transf (AST/SGOT) 35 Alanine Aminotransferase (ALT/SGPT) 26 Total Bilirubin 0.4 Sodium Level 139 Potassium Level 3.2 Chloride Level 107 Carbon Dioxide Level 23.6 Anion Gap 8 Estimat Glomerular Filtration Rate 102 Protein Corrected Calcium 7.8 Result Diagram: 03/17/18 0600 03/17/18 06 Assessment and Plan Assessment and Plan 52-year-old female with a diagnosis of metastatic breast carcinoma dating back to September 2007, prior to that she was diagnosed with bilateral locally advanced synchronously diagnosed breast cancer was diagnosed in 2004. Her original treatment history and a summary of her disease course has been outlined above. She is presently on palliative systemic therapy with Ibrance 75 mg daily in combination with Faslodex injections; she has been on the current regimen for the past 2 years. The patient tells me she is responding to treatment based on restaging imaging scans and serum tumor markers. She presents to this facility with uncontrolled nausea and vomiting which occurred after an alcohol binge. Since being hospitalized the patient has had worsening pancytopenia. Based on my discussion with the patient it appears she has cytopenias at baseline. In my assessment, the cytopenias may have been somewhat exacerbated by recent IV fluid hydration i.e. dilution. Additional contributing factors are likely ongoing treatment with Ibrance which is commonly associated with myelosuppression as well as myelosuppression secondary to alcohol. I did talk to the patient briefly about the importance of her decreasing her alcohol consumption. The patient tells me she has spoken to her primary oncologist Dr. Inman about this many times in the past. Recommendations: 1. Pancytopenia: Likely related to combination of factors including dilution, ongoing therapy with a systemic therapeutic agent with mild suppression as a common adverse effect as well as alcohol-related myelosuppression. I would recommend supportive care. She is afebrile therefore I do not think she requires growth factor support. I would however recommend she remain off Ibrance until she meets with her primary oncologist in the outpatient setting. 2. Metastatic breast carcinoma: This is a chronic issue for her, she is on palliative endocrine therapy with Faslodex and Ibrance. Based on what the patient tells me she has been responding reasonably well to treatment. I have therefore advised her to hold Ibrance at least until she meets with Dr. Inman to review dosing schedules and possible additional dose modification. Subjectively; the patient feels well and from an oncologic and hematologic standpoint she is clear for discharge Discussed Condition With Patient. Her family. Primary hospitalist service. Mauro Fitch MD March 17, 2018 18:13
[2018-03-18] VITALS: BP_SYST 158; BP_SYST 178; BP_DIAS 82; BP_DIAS 94; PULSE 73; RESP 20; TEMP 98.8; O2SAT 100
[2018-03-18 04:00] VITALS: BP 168/98; PULSE 66; RESP 20; TEMP 98.6; O2SAT 99
[2018-03-18] MEDS: SODIUM CHLOR 0.9% 1000 ML INJ 1,000 ML IV SCH ×2 (04:31→05:10)
[2018-03-18 06:41] LABS: AUTOMATED NEUTROPHIL # 1.4 TH/MM3 (1.8-7.7); BASOPHIL % 0.7 % (0.0-2.0); HEMATOCRIT 32.8 % (35.0-46.0); HEMOGLOBIN 10.7 GM/DL (11.6-15.3); LYMPH % 40.8 % (9.0-44.0); LYMPHOCYTE # 1.1 TH/MM3 (1.0-4.8); MEAN CELL VOLUME 103.7 FL (80.0-100.0); MEAN CORPUSCULAR HEMOGLOBIN 33.9 PG (27.0-34.0); MEAN CORPUSCULAR HGB CONC 32.7 % (32.0-36.0); MEAN PLATELET VOLUME 7.2 FL (7.0-11.0); MONO % 7.8 % (0.0-8.0); MONOCYTE # 0.2 TH/MM3 (0-0.9); NEUT % 49.7 % (16.0-70.0); PLATELET COUNT 134 TH/MM3 (150-450); RED BLOOD COUNT 3.16 MIL/MM3 (4.00-5.30); RED CELL DISTRIBUTION WIDTH 13.5 % (11.6-17.2); WHITE BLOOD COUNT 2.7 TH/MM3 (4.0-11.0)
[2018-03-18 06:54] LABS: CALCIUM 7.9 MG/DL (8.5-10.1)
[2018-03-18 06:55] LABS: BICARBONATE 24.6 MEQ/L (21.0-32.0)
[2018-03-18 06:58] LABS: CREATININE 0.59 MG/DL (0.50-1.00)
[2018-03-18 08:00] VITALS: BP 163/87; PULSE 65; RESP 16; TEMP 98.7; O2SAT 100
[2018-03-18] MEDS: THIAMINE HCL 100 MG TAB PO SCH (08:44)
[2018-03-18] MEDS: LISINOPRIL 10 MG TAB PO SCH (08:44)
[2018-03-18] MEDS: VENLAFAXINE HCL XR 75 MG CAP PO SCH (08:44)
[2018-03-18] MEDS: FAMOTIDINE 20 MG TAB PO SCH (08:44)
[2018-03-18] MEDS: FOLIC ACID 1 MG TAB PO SCH (08:45)
[2018-03-18] MEDS: SODIUM CHLORIDE 0.9% FLUSH 10 ML FLUSH IV FLUSH SCH (08:52)
[2018-03-18] MEDS: MULTIVITAMINS/MINERALS THERAPEUTIC TAB PO SCH (08:52)
--- NOTE | 2018-03-18 11:41 | HHI.DCPOC ---
Discharge Care Plan Diagnosis: (1) Alcohol intoxication Goals to Promote Your Health * To prevent worsening of your condition and complications * To maintain your health at the optimal level Directions to Meet Your Goals Take your medications as prescribed Follow your dietary instruction Follow activity as directed Keep your appointments as scheduled Take your immunizations and boosters as scheduled If your symptoms worsen call your PCP, if no PCP go to Urgent Care Center or Emergency Room Smoking is Dangerous to Your Health. Avoid second hand smoke Call the 24-hour hour crisis hotline for domestic abuse at Kyree Pelayo March 18, 2018 11:41
--- NOTE | 2018-03-18 11:56 | HHI.DS ---
Discharge Summary Admission Date March 16, 2018 at 23:08 Discharge Date: March 18, 2018 Admitting Diagnosis alcohol withdrawal; leukopenia; breast ca (1) Nausea and vomiting ICD Code: R11.2 - Nausea with vomiting, unspecified Status: Acute (2) Alcohol abuse with intoxication ICD Code: F10.129 - Alcohol abuse with intoxication, unspecified (3) Breast cancer metastasized to multiple sites ICD Code: C50.919 - Malignant neoplasm of unspecified site of unspecified female breast Procedures None Brief History - From Admission This is a 52-year-old female patient with a known medical history of metastatic breast cancer with multiple recurrences, hypertension and alcohol abuse who presented to the ED with complaints of vomiting. Patient states that since last evening around 5 PM she began to vomit and was unable to tolerate any food by mouth. Patient states that she did drink heavily on Saturday night as well as yesterday afternoon. She denies any recent fever, chills, cough, shortness of breath, abdominal pain, diarrhea or dysuria. Patient does admit to a recent UTI a month ago and antibiotics and symptoms resolved. Patient does admit to history of panic attacks. Denies any history of alcohol withdrawal, seizures or DTs. Patient follows with Dr. Inman, oncology, was last seen 2 weeks ago and follows with him monthly. Patient is on Ibrance, and started this cycle on Saturday with subsequent vomiting as well as associated alcohol consumption. Patient was initially diagnosed with metastatic breast cancer in 2005 with multiple recurrences and metastases to the sternum and spine. Patient does admit to frequent GERD symptoms as well as frequent vomiting. PCP is Dr. Logan. CBC/BMP: 03/18/18 0520 03/18/18 0520 Significant Findings Laboratory Tests Test 03/16/18 18:30 03/16/18 18:55 03/16/18 20:10 03/16/18 20:30 Urine Protein 30 mg/dL (NEG-TRACE) Urine Ketones 40 mg/dL (NEG) White Blood Count 2.8 TH/MM3 (4.0-11.0) Red Blood Count 3.44 MIL/MM3 (4.00-5.30) Mean Corpuscular Volume 101.7 FL (80.0-100.0) Mean Corpuscular Hemoglobin 35.1 PG (27.0-34.0) Neutrophils (%) (Auto) 70.9 % (16.0-70.0) Monocytes (%) (Auto) 9.5 % (0.0-8.0) Lymphocytes # (Auto) 0.5 TH/MM3 (1.0-4.8) Activated Partial Thromboplast Time 22.8 SEC (24.3-30.1) Aspartate Amino Transf (AST/SGOT) 53 U/L (15-37) Potassium Level 3.4 MEQ/L (3.5-5.1) Carbon Dioxide Level 17.5 MEQ/L (21.0-32.0) Anion Gap 17 MEQ/L (5-15) Estimat Glomerular Filtration Rate 79 ML/MIN (>89) Ethyl Alcohol Level 25 MG/DL (0-5) Lactic Acid Level 2.1 mmol/L (0.4-2.0) Test 03/16/18 21:58 03/16/18 22:00 03/17/18 06:00 03/18/18 05:20 Venous Blood pH 7.46 (7.360-7.400) White Blood Count 1.9 TH/MM3 (4.0-11.0) 2.7 TH/MM3 (4.0-11.0) Red Blood Count 3.06 MIL/MM3 (4.00-5.30) 3.16 MIL/MM3 (4.00-5.30) Hemoglobin 10.5 GM/DL (11.6-15.3) 10.7 GM/DL (11.6-15.3) Hematocrit 31.5 % (35.0-46.0) 32.8 % (35.0-46.0) Mean Corpuscular Volume 103.0 FL (80.0-100.0) 103.7 FL (80.0-100.0) Mean Corpuscular Hemoglobin 34.4 PG (27.0-34.0) Platelet Count 136 TH/MM3 (150-450) 134 TH/MM3 (150-450) Mean Platelet Volume 6.7 FL (7.0-11.0) Lymphocytes (%) (Auto) 48.1 % (9.0-44.0) Monocytes (%) (Auto) 12.9 % (0.0-8.0) Neutrophils # (Auto) 0.7 TH/MM3 (1.8-7.7) 1.4 TH/MM3 (1.8-7.7) Lymphocytes % 64 % (9-44) Neutrophils # (Manual) 0.5 TH/MM3 (1.8-7.7) Blastocytes 1 % (0-0) Platelet Estimate LOW (NORMAL) Ovalocytes 1+ (NORMAL) Albumin 3.2 GM/DL (3.4-5.0) Calcium Level 7.4 MG/DL (8.5-10.1) 7.9 MG/DL (8.5-10.1) Potassium Level 3.2 MEQ/L (3.5-5.1) Protein Corrected Calcium 7.8 MG/DL (8.5-10.1) Blood Urea Nitrogen 5 MG/DL (7-18) PE at Discharge GENERAL: Well-developed, well-nourished, in no acute distress. alert and orientated HEENT: Head is normocephalic without any lesions or masses noted. Facial features are symmetric. Eyes: Extraocular muscles are intact. Conjunctivae were clear. NECK: Supple without any masses. Trachea midline no deviation. No JVD, CARDIAC: Regular rhythm, regular rate. S1/S2 are heard. No murmurs gallops or rubs. LUNGS: Clear to auscultation bilaterally. No wheeze, rhonchi or rales. No use of accessory muscles on inspiration or expiration. ABDOMEN: Soft, nontender. Nondistended. Bowel sounds heard in all 4 quadrants. No organomegaly or masses. Negative rebound, negative guarding EXTREMITIES: No edema, pulses are equal bilaterally. No cyanosis or clubbing NEUROLOGY: Mood and affect appear appropriate. Cranial nerves II through XII grossly intact. Moving all extremities, speech is clear Hospital Course 52-year-old female with rather unfortunate history of metastatic cancer to the spine who originally presented the hospital because of nausea and vomiting. Patient workup done emergency department and was recommended by the ER physician that the patient be admitted to the hospital for nausea, vomiting and possible early withdrawal from alcohol. Patient had workup done which did indicate alcohol level 25. Patient had mild metabolic acidosis without any signs of dehydration or electrolyte abnormalities. Patient admitted to the hospital with IV fluids, CIWA protocol. Patient is undergoing chemotherapy and did have leukopenia. Pension Administrator was consulted during her stay in the hospital and recommended that holding of Ibrance until she is seen by her oncologist Dr. Inman. Patient clinically stable this time. No use of any Ativan for withdrawals, CIWA score is 0. Patient has been cleared by oncology for discharge. Patient clinically stable this time. She is eating without any recurrent nausea vomiting. We will plan discharge accordingly. Pt Condition on Discharge: Stable Discharge Disposition: Discharge Home Discharge Time: > 30 minutes Discharge Instructions DIET: Follow Instructions for: As Tolerated, No Restrictions Activities you can perform: Regular-No Restrictions Follow up Referrals: Oncology with Dr Inman PCP Follow-up - 1 Week Continued Medications: Lisinopril (Lisinopril) 10 Mg Tab 10 MG PO DAILY, #30 TAB 0 Refills Venlafaxine ER 24 HR (Venlafaxine ER 24 HR) 75 Mg Cap 75 MG PO DAILY, #30 CAP 0 Refills Discontinued Medications: Palbociclib (Ibrance) 75 Mg Capsule 1 TAB PO DAILY Kyree Pelayo March 18, 2018 11:56
[2018-03-18 12:00] VITALS: BP 136/87; PULSE 72; RESP 16; TEMP 98.2; O2SAT 99
== END 2018-03-18 12:56 | disposition home or self-care (01) ==
LOC: PHEFT 18:18 → PHEDA 23:08 → PH3B 03-17 00:37
PROVIDERS: ADMIT Hospitalist; ATTEND Hospitalist
DX: R11.2 Nausea with vomiting, unspecified (principal); F10.239 Alcohol dependence with withdrawal, unspecified; I10 Essential (primary) hypertension; E87.6 Hypokalemia; D70.2 Other drug-induced agranulocytosis; E86.0 Dehydration; D61.818 Other pancytopenia; E87.2 Acidosis; K29.70 Gastritis, unspecified, without bleeding; F41.0 Panic disorder [episodic paroxysmal anxiety]; F32.9 Major depressive disorder, single episode, unspecified; Y90.1 Blood alcohol level of 20-39 mg/100 ml; Z79.899 Other long term (current) drug therapy; Z86.73 Personal history of transient ischemic attack (TIA), and cerebral infarction without residual deficits; Z85.3 Personal history of malignant neoplasm of breast; Z85.830 Personal history of malignant neoplasm of bone; Z92.21 Personal history of antineoplastic chemotherapy; Z92.3 Personal history of irradiation
CPT/HCPCS: 80048; 80053; 80307; 81001; 82140; 82800; 82948; 83605; 83690; 83735; 85007; 85025; 85027; 85610; 85730; 96361; 96374; 96376; 99285; G0378; J2060; J7030